=== PATIENT | female | born 1960 | race Caucasian/White ===

== ENCOUNTER → 2019-11-02 15:35 | Outpatient (CLI) | payer BC, MEDICAID, SELFPAY ==
--- NOTE | 2019-11-02 | LES_PTH ---
PATIENT: HONORIO TOVAR LOC: [facility] U#:[id number] AGE/SX: 64/F ROOM: RE11/02/[address]: Dr. Thiago Rod MD : 1960 BED: DIS: SPEC #: [id number] RECD: 11/02/19 15:18 STATUS: RAGHAVENDRA MENDEZ #: [id number] PASTORA: 11/02/19 00:[address]: Thiago Rod DEPT: SURGICAL PATHOLOGY RECD BY: Daniel Hickman ENTERED: 11/03/19 14:06 SP TYPE: Lesion OTHR DR: Dr. Ulises Steinberg DO Tissues: Skin of eyelid, NOS Procedures: Surgery Specimen Level IV HEADER OPERATION: Right lower eyelid lesion biopsy PRE-OP DIAGNOSIS: Increased size of cystic lesions with vascularity TISSUE SUBMITTED: RLL MICROSCOPIC DIAGNOSIS Right lower eyelid lesion, biopsy: Consistent with eccrine hidrocystoma. AM:andrez 11/04/19 MICROSCOPIC DESCRIPTION Slides are reviewed. GROSS DESCRIPTION Received is one container labeled with the patient's name and not further designated. The specimen consists of a piece of harden soft tissue measuring 0.5 x 0.3 x 0.2 cm. The entire specimen is submitted in one cassette. / SJ:andrez 11/03/19 TC:1 CPT: 81316
== END ==
LOC: LABSPEC 15:41
PROVIDERS: PCP Preventive Medicine Occupational Medicine; Referring Provider Ophthalmology; Visit Provider Ophthalmology
DX: H02.9 Unspecified disorder of eyelid (principal)
CPT/HCPCS: 88305

== ENCOUNTER 2021-08-15 09:40 | Outpatient (CLI) | payer BC, SELFPAY ==
--- NOTE | 2021-08-15 09:48 | ADU_ITS ---
Reason For Study: Stricture of artery Right Velocities Left Velocities Ext. Iliac Artery, dist = 103.4 cm./sec. Ext Iliac Artery, dist = 166.9 cm./sec. Common Femoral Artery, mid = 65 cm./sec. Common Femoral Artery, mid = 150.7 cm./sec. Supf Femoral Artery, prox = 188 cm./sec. Supf. Femoral Artery, prox = 79.6 cm./sec. SFA mid, No flow noted. SFA mid, prox to occlusion, 130.7 cm/sec. Supf Femoral Artery, dist. = 51.1 cm./sec. SFA mid/distal, No flow noted. Profunda Femoral Artery = 96 cm./sec. SFA distal, distal to occlusion, 42.4 cm/sec. Popliteal Artery, mid = 36.4 cm./sec. Profunda Femoral Artery = 110.3 cm./sec. Post. Tibial Artery, prox = 42.4 cm./sec. Popliteal Artery, mid = 33.2 cm./sec. Post. Tibial Artery, mid = 43.5 cm./sec. Post. Tibial Artery, prox = 27.5 cm./sec. Post. Tibial Artery, dist = 43.5 cm./sec. Post Tibial Artery, mid = 46 cm./sec. Peroneal Artery, prox = 24.9 cm./sec. Post Tibial Artery, dist. = 26 cm./sec. Peroneal Artery, mid = 23.2 cm./sec. Peroneal Artery, prox = 21.1 cm./sec. Peroneal Artery,dist = 20.6 cm./sec. Peroneal Artery, mid = 18.2 cm./sec. Ant. Tibial Artery, prox = 35.4 cm./sec. Peroneal Artery,dist. = 8.9 cm./sec. Ant. Tibial Artery, mid = 24.9 cm./sec. Ant.Tibial Artery, prox = 23.1 cm./sec. Ant. Tibial Artery, dist = 21.1 cm./sec. Ant Tibial Artery, mid = 16.4 cm./sec. Ant. Tibial Artery, distal = 16 cm./sec. Procedure Exam performed in department. /US Art Duplex Bilat Lower Ext Interpretation Summary Bilateral mid femoral artery with occlusions. Ordering Physician: Adrian Coats Referring Physician: Ulises Steinberg Performed By: Soni Hawthorne RVT
--- NOTE | 2021-08-15 09:48 | AAVD_ITS ---
Reason For Study: Stricture of artery Aorta Measurements Aorta Doppler Measurements Proximal aorta measures1.49 x 1.49cm. in cross- Peak systolic flow velocities within the proximal sectional axis. aorta measure 68.3 cm/sec. Proximal aorta measures1.49cm. in longitudinal Peak systolic flow velocities within the mid aorta axis. measure 107 cm/sec. Mid aorta measures1.56 x 1.58cm. in cross- Peak systolic flow velocities within the distal sectional axis. aorta measure 86.9 cm/sec. Mid aorta measures1.56cm. in longitudinal axis. Distal aorta measures1.28 x 1.30cm. in cross- sectional axis. Distal aorta measures1.31cm. in longitudinal axis. Left Iliac Artery Left iliac artery measures 0.99 x 0.99 cm. in the cross-sectional axis. Left iliac artery measures 0.98 cm. in the longitudinal axis. Peak systolic velocity in the left iliac artery measures 103.4 cm/sec. Right Iliac Artery Right iliac artery measures 1.14 x 1.16 cm. in the cross-sectional axis. Right iliac artery measures 1.11 cm. in the longitudinal axis. Peak systolic velocity in the right iliac artery measures 86.9 cm/sec. Procedure Aorta IVC Iliac vasculature or bypass grafts [id number]. Exam performed in department. VL/Abd Aortic/IVC Duplex scan Interpretation Summary No evidence of aortic iliac aneurysm or stenosis. Ordering Physician: Adrian Coats Referring Physician: Ulises Steinberg Performed By: Soni Hawthorne RVT
--- NOTE | 2021-08-15 09:48 | ART_ITS ---
Reason For Study: Atherosclerosis Procedure A bilateral lower extremity continuous wave Doppler with analog waveform analysis and ankle brachial indexes. Left Segmental Pressures Left brachial= 115mmHg. Left posterior tibial artery = 72mmHg. Left dorsalis pedis artery = 68mmHg. Left digit = 42 mmHg. The left dorsalis pedis waveforms are biphasic. The left posterior tibial artery waveforms are biphasic. Right Segmental Pressures Right brachial= 119mmHg. Right posterior tibial artery = 75mmHg. Right dorsalis pedis artery = 70mmHg. Right digit = 45 mmHg. The right dorsalis pedis waveforms are biphasic. The right posterior tibial artery waveforms are biphasic. Indices The right ankle brachial index by the dorsalis pedis is 0.59. The right ankle brachial index by the posterior tibial artery is 0.63. The right digital-brachial index is 0.38. The left ankle brachial index by the dorsalis pedis is 0.57. The left ankle brachial index by the posterior tibial artery is 0.61. The left digital-brachial index is 0.35. VL/Ankle Brachial Index Interpretation Summary Bilateral moderate occlusive disease at rest with biphasic flow and an IRENE 0.63 on the right and 0.61 on the left. Ordering Physician: Adrian Coats Referring Physician: Ulises Steinberg Performed By: Soni Hawthorne RVT
== END 2021-08-15 23:59 | disposition home or self-care (01) ==
LOC: CVS 09:46
PROVIDERS: PCP Preventive Medicine Occupational Medicine; Referring Provider Surgery Vascular Surgery; Visit Provider Surgery Vascular Surgery
DX: I70.213 Atherosclerosis of native arteries of extremities with intermittent claudication, bilateral legs (principal); I77.1 Stricture of artery; I70.0 Atherosclerosis of aorta; I10 Essential (primary) hypertension
CPT/HCPCS: 93922; 93925; 93978

== ENCOUNTER → 2022-06-01 | Outpatient (CLI) | payer MEDICARE, MEDICAID, SELFPAY ==
--- NOTE | 2022-06-01 09:05 | CDU_ITS ---
Reason For Study: Stenosis Rt. Velocities/BP Lt. Velocities/BP Prox CCA 82.8/28.9 cm/sec. Prox CCA 163.1/51.1 cm/sec. Mid CCA 132.1/42.6 cm/sec. Mid CCA 121.4/35.8 cm/sec. Dist CCA 108.3/31.6 cm/sec. Dist CCA 103.8/31.4 cm/sec. Prox ICA 113.8/27.9 cm/sec. Prox ICA 121.1/37.1 cm/sec. Mid ICA 90/29.8 cm/sec. Mid ICA 104.7/40.7 cm/sec. Dist ICA 60.8/23.4 cm/sec. Dist ICA 88.8/29.8 cm/sec. Rt. ICA/CCA = 1.05. Lt. ICA/CCA = 1.00. Prox ECA 104.7/20.6 cm/sec. Prox ECA 136.8/35.8 cm/sec. Rt. Vert. 31.5/8 cm/sec. Lt. Vert. 49.5/13.9 cm/sec. Right Extracranial There is intimal thickening but no significant atherosclerotic plaque noted in the right common carotid artery. There is homogeneous, smooth atherosclerotic plaque noted in the right internal carotid artery. There is intimal thickening but no significant atherosclerotic plaque noted in the right external carotid artery. Antegrade flow is noted in the right vertebral artery. Left Extracranial There is intimal thickening but no significant atherosclerotic plaque noted in the left common carotid artery. There is intimal thickening but no significant atherosclerotic plaque noted in the left internal carotid artery. There is intimal thickening but no significant atherosclerotic plaque noted in the left external carotid artery. Antegrade flow is noted in the left vertebral artery. Procedure Carotid Duplex [id number]. This is a Carotid Duplex examination using B-mode, color flow and specral Doppler. Exam performed in department. VL/Carotid Duplex Ultrasound Interpretation Summary Mild (<50%) stenosis right extracranial internal carotid. Mild (<50%) stenosis left extracranial internal carotid. Flow within the vertebral arteries is antegrade bilaterally. Ordering Physician: Adrian Coats Referring Physician: Ulises Shah Performed By: Soni Hawthorne RVT
--- NOTE | 2022-06-01 09:05 | ADU_ITS ---
Reason For Study: Atherosclerosis Right Velocities Left Velocities Ext. Iliac Artery, dist = 104.5 cm./sec. Ext Iliac Artery, dist = 104.1 cm./sec. Common Femoral Artery, mid = 111.1 cm./sec. Common Femoral Artery, mid = 161.6 cm./sec. Supf Femoral Artery, prox = 62.2 cm./sec. Supf. Femoral Artery, prox = 77.8 cm./sec. SFA mid, No flow. SFA mid, prox to occlusion, 58.4 cm/sec. SFA mid/distal, distal to occlusion, 42.4 cm/sec. SFA mid/distal, No flow noted. Supf Femoral Artery, dist. = 43.3 cm./sec. SFA distal, distal to occlusion, 38.4 cm/sec. Profunda Femoral Artery = 83.3 cm./sec. Profunda Femoral Artery = 79.6 cm./sec. Popliteal Artery, mid = 31.1 cm./sec. Popliteal Artery, mid = 29.6 cm./sec. Post. Tibial Artery, prox = 26.7 cm./sec. Post. Tibial Artery, prox = 23.9 cm./sec. Post. Tibial Artery, mid = 31.1 cm./sec. Post Tibial Artery, mid = 30.3 cm./sec. Post. Tibial Artery, dist = 28.4 cm./sec. Post Tibial Artery, dist. = 39.6 cm./sec. Peroneal Artery, prox = 16.4 cm./sec. Peroneal Artery, prox = 13.9 cm./sec. Peroneal Artery, mid = 16.8 cm./sec. Peroneal Artery, mid = 14.7 cm./sec. Peroneal Artery,dist = 8.1 cm./sec. Peroneal Artery,dist. = 7.7 cm./sec. Ant. Tibial Artery, prox = 22.7 cm./sec. Ant.Tibial Artery, prox = 17.2 cm./sec. Ant. Tibial Artery, mid = 20.7 cm./sec. Ant Tibial Artery, mid = 21.3 cm./sec. Ant. Tibial Artery, dist = 19.1 cm./sec. Ant. Tibial Artery, distal = 19.7 cm./sec. Procedure Exam performed in department. /US Art Duplex Bilat Lower Ext Interpretation Summary Bilateral femoral artery occlusion. Ordering Physician: Adrian Coats Referring Physician: Ulises Steinberg Performed By: Soni Hawthorne RVT
--- NOTE | 2022-06-01 09:06 | ART_ITS ---
Reason For Study: Atherosclerosis Procedure A bilateral lower extremity continuous wave Doppler with analog waveform analysis and ankle brachial indexes. Left Segmental Pressures Left brachial= 96mmHg. Left posterior tibial artery = 58mmHg. Left dorsalis pedis artery = 57mmHg. The left dorsalis pedis waveforms are biphasic. The left posterior tibial artery waveforms are biphasic. Right Segmental Pressures Right posterior tibial artery = 66mmHg. Right dorsalis pedis artery = 67mmHg. The right dorsalis pedis waveforms are biphasic. The right posterior tibial artery waveforms are biphasic. Indices The right ankle brachial index by the dorsalis pedis is 0.70. The right ankle brachial index by the posterior tibial artery is 0.69. The left ankle brachial index by the dorsalis pedis is 0.59. The left ankle brachial index by the posterior tibial artery is 0.60. VL/Ankle Brachial Index Interpretation Summary Bilateral biphasic flow with IRENE 0.7 on the right and 0.6 on the left. Ordering Physician: Adrian Coats Referring Physician: Ulises Steinberg Performed By: Soni Hawthorne RVT
== END | disposition home or self-care (01) ==
PROVIDERS: PCP Preventive Medicine Occupational Medicine; Referring Provider Surgery Vascular Surgery; Visit Provider Surgery Vascular Surgery
DX: I65.23 Occlusion and stenosis of bilateral carotid arteries (principal); I70.213 Atherosclerosis of native arteries of extremities with intermittent claudication, bilateral legs; I77.1 Stricture of artery; F17.210 Nicotine dependence, cigarettes, uncomplicated
CPT/HCPCS: 93880; 93922; 93925

== ENCOUNTER → 2023-06-10 | Outpatient (CLI) | payer MEDICARE, MEDICAID, SELFPAY ==
--- NOTE | 2023-06-10 12:26 | ADU_ITS ---
Reason For Study: Atherosclerosis Right Velocities Left Velocities Ext. Iliac Artery, dist = 84 cm./sec. Ext Iliac Artery, dist = 118 cm./sec. Common Femoral Artery, mid = 133 cm./sec. Common Femoral Artery, mid = 151 cm./sec. Supf Femoral Artery, prox = 54 cm./sec. Supf. Femoral Artery, prox = 118 cm./sec. Supf Femoral Artery, mid = 0 cm./sec. Lt SFA prox/mid Stent: Supf Femoral Artery, dist. = 78 cm./sec. Pre Stent: 118 cm/s No flow noted Rt SFA mid, flow reconstitutes at Prox Stent: 96 cm/s distal SFA. Stent Pre stenosis: 113 cm/s Profunda Femoral Artery = 64 cm./sec. Stent Stenosis: 356 cm/s Popliteal Artery, mid = 28 cm./sec. Stent Post Stenosis: 206 cm/s Post. Tibial Artery, prox = 37 cm./sec. Mid Stent: 72 cm/s Post. Tibial Artery, mid = 34 cm./sec. Distal Stent: 56 cm/s Post. Tibial Artery, dist = 37 cm./sec. Post Stent: 110 cm/s Peroneal Artery, prox = 15 cm./sec. Lt SFA distal Stenosis: Peroneal Artery, mid = 13 cm./sec. Pre Stenosis: 89 cm/s Peroneal Artery,dist = 14 cm./sec. Stenosis: 270 cm/s Ant. Tibial Artery, prox = 31 cm./sec. Post Stenosis: 124 cm/s. Ant. Tibial Artery, mid = 20 cm./sec. Supf. Femoral Artery, mid = 110 cm./sec. Ant. Tibial Artery, dist = 18 cm./sec. Supf. Femoral Artery, dist = 270 cm./sec. Profunda Femoral Artery = 82 cm./sec. Popliteal Artery, mid = 44 cm./sec. Post. Tibial Artery, prox = 45 cm./sec. Post Tibial Artery, mid = 45 cm./sec. Post Tibial Artery, dist. = 35 cm./sec. Peroneal Artery, prox = 43 cm./sec. Peroneal Artery, mid = 40 cm./sec. Peroneal Artery,dist. = 19 cm./sec. Ant.Tibial Artery, prox = 38 cm./sec. Ant Tibial Artery, mid = 45 cm./sec. Ant. Tibial Artery, distal = 46 cm./sec. Procedure Exam performed in department. VL/US Art Duplex Bilat Lower Ext Interpretation Summary Right femoral occluded. Left femoral stent severe stenosis. Ordering Physician: Adrian Coats Referring Physician: Ulises Steinberg Performed By: Nany Ruiz, KARTHIK, RVT
--- NOTE | 2023-06-10 12:26 | ART_ITS ---
Reason For Study: Atherosclerosis Procedure A bilateral lower extremity continuous wave Doppler with analog waveform analysis and ankle brachial indexes. Left Segmental Pressures Left brachial= 107mmHg. Left posterior tibial artery = 67mmHg. Left dorsalis pedis artery = 88mmHg. Left digit = 55 mmHg. Right Segmental Pressures Right posterior tibial artery = 72mmHg. Right dorsalis pedis artery = 70mmHg. Right digit = 36 mmHg. Indices The right ankle brachial index by the posterior tibial artery is 0.67. The right ankle brachial index by the dorsalis pedis is 0.65. The right digital-brachial index is 0.34. The left ankle brachial index by the posterior tibial artery is 0.63. The left ankle brachial index by the dorsalis pedis is 0.82. The left digital-brachial index is 0.51. VL/Ankle Brachial Index Interpretation Summary The right resting ankle-brachial index appears moderately abnormal. The left re sting ankle-brachial index appears mildly abnormal. Ordering Physician: Adrian Coats Referring Physician: Ulises Steinebrg Performed By: Nany Ruiz RDCS/RVT
--- OUTSIDE RECORDS SUMMARY | 2023-06-10 12:52 | XMS RPT_ITS | CCD ---
Author Name Unknown Address [address] [place] [address] Organization [facility] Care Team Providers Care Saddle Maker Name Role Phone DerianBrenton bear Attending Unavailable PROVIDER, UNKNOWN Referring Unavailable Annabel Steinberg Primary Care Unavaila Annabel Harrington DO Primary Care Provider ANNABEL STEINBERG DO Primary Care Physician [phone] ANNABEL STEINBERG DO Primary Care Physician [phone] CONNIE REYNAGA, DR BYERS Attending UnavailANNABEL Nickerson DO Primary Care Unavailable DR ZEESHAN ROSALES MD Attending UnavailANNABEL Nickerson DO Primary Care Unavailable CODY REYNAGA, DR MORALES Attending Unavailab ANNABEL Grubbs DO Primary Care Unavailable VANESSA FONSECA MD Attending Unavailable ANNABEL STEINBERG DO Primary Care Unavailable NATHALIA BROOKS DO Attending Unavailable ANNABEL STEINBERG DO Primary Care Unavailable ANNABLE STEINBERG DO Attending Unavailable ANNABEL STEINBERG DO Primary Care Unavailable ANNABEL STEINBERG DO Attending Unavailable ANNABEL STEINBERG DO Primary Care Unavailable Allergies Allergy Classification Reported Allergen(s) Allergy Type Date of Onset Reaction(s) Facility (8 sources) NSAIDs; Translations: [NSAIDs] Drug intolerance Nausea [facility] (8 sources) Simvastatin; Translations: [simvastatin] Drug Allergy Nausea [facility] (7 sources) dulaglutide; Translations: [dulaglutide] Drug Allergy Abdominal pain (finding), Headache (finding), Nausea (finding) [facility] (7 sources) Ozempic; Translations: [semaglutide] Drug allergy Nausea (finding), Abdominal pain (finding) [facility] Phys[facility] Cammal Medications Current Medications Medication Drug Class(es) Dates Sig (Normalized) Sig (Original) acetaminophen 325 mg / oxyCODONE hydrochloride 5 mg oral tablet (1 source) Opioid Agonist take 1 tablet by mouth every six hours as needed for pain oxyCODONE-acetamin ophen (PERCOCET) 5-325 MG per tablet Take 1 tablet by mouth every 6 hours as needed for Pain.. 0 Active albuterol MDI (90 mcg/inh) CFC free inhalation aerosol (8 sources) Start: 10-12-2022 take 2 puff(s) by inhalation every four hours as needed for wheezing albuterol MDI (90 mcg/inh) CFC free inhalation aerosol 2 puff(s), Inhalation, q4h, PRN as needed for wheezing, # 18 gram(s), 2 Refill(s), Pharmacy: [facility], Viral upper respiratory infection, 168.5, cm, 07/26/22 10:48:00 EDT, Height, kg, 07/26/22 10:48:00 EDT, Dosing Weight Start Date: 10/12/22 Status: Ordered Completed/Discontinued Medications Medication Drug Class(es) Dates Sig (Normalized) Sig (Original) 0.5 ml dulaglutide 1.5 mg/ml auto-injector (1 source) GLP-1 Receptor Agonist Start: 02-28-2021 inject 0.5 mL by subcutaneous injection every week Trulicity Pen 0.75 mg/0.5 mL subcutaneous solution Dose : 0.75 mg = 0.5 mL, Subcutaneous, qWeek, # 2.5 mL, 5 Refill(s), 0.5 mL/Pen, Pharmacy: [facility]/pharmacy #[id number], Diabetes mellitus type 2, 170.2, cm, 02/28/21 17:00:00 EDT, Height, kg, 02/28/21 17:00:00 EDT, Dosing Weight Start Date: 02/28/21 Status: Ordered gadobutrol (GADAVIST) injection 11 mL (1 source) Start: 10-10-2020 End: 10-10-2020 gadobutrol (GADAVIST) injection 11 mL Problems Active Problems Problem Classification Problem Date Documented Da te Episodic/Chronic Acute and unspecified renal failure (1 source) Acute renal failure syndrome; Translations: [Acute kidney failure, unspecified] Onset: 2 Episodic Allergic reactions (8 sources) Eczema 08-02-2020 Episodic Anxiety disorders (13 sources) Mixed anxiety and depressive disorder; Translations: [Anxiety disorder] Onset: 2 05-29-2019 Chronic Coagulation and hemorrhagic disorders (8 sources) Blood coagulation disorder 07-10-2013 Chronic Congestive heart failure; nonhypertensive (9 sources) Heart failure; Translations: [Heart failure, unspecified] Onset: 2 08-02-2020 Chronic Diabetes mellitus with complications (8 sources) Polyneuropathy due to type 2 diabetes mellitus 11-27-2019 Chronic Diabetes mellitus with complications (2 sources) Type 2 diabetes mellitus with diabetic peripheral angiopathy with gangrene; Translations: [Type 2 diabetes w diabetic peripheral angiopathy w gangrene] Onset: 9 Diabetes mellitus without complication (9 sources) Type 2 diabetes mellitus; Translations: [Type 2 diabetes mellitus without complication] Onset: 2 11-27-2019 Chronic Disorders of lipid metabolism (9 sources) Mixed hyperlipidemia; Translations: [Mixed hyperlipidemia] Onset: 2 08-02-2020 Chronic Esophageal disorders (9 sources) Gastroesophageal reflux disease; Translations: [Gastroesophageal reflux disease without esophagitis] Onset: 2 06-19-2017 Chronic Essential hypertension (11 sources) Essential (primary) hypertension; Translations: [Hypertensive disorder] Onset: 9 11-27-2019 Chronic Fluid and electrolyte disorders (1 source) Dehydration; Translations: [Dehydration] Onset: 3 Episodic Gangrene (2 sources) Gangrene, not elsewhere classified; Translations: [Gangrene, not elsewhere classified] Onset: 9 Episodic Genitourinary symptoms and ill-defined conditions (8 sources) Urgent desire to urinate 11-27-2019 Episodic Mood disorders (2 sources) Major depressive disorder, single episode, unspecified; Translations: [Major depressive disorder, single episode, unspecified] Onset: 9 Nausea and vomiting (1 source) Nausea; Translations: [Nausea] Onset: 2 Episodic Osteoarthritis (8 sources) Osteoarthritis of right knee joint 05-29-2019 Chronic Other aftercare (2 sources) extermination inspector (current) use of anticoagulants; Translations: [snf (current) use of anticoagulants] Onset: 9 Episodic Other aftercare (2 sources) extermination inspector (current) use of insulin; Translations: [extermination inspector (current) use of insulin] Onset: 9 Episodic Other connective tissue disease (9 sources) Fibromyalgia; Translations: [Fibromyalgia] Onset: 2 11-25-2018 Episodic Other connective tissue disease (8 sources) Pain in toe 01-03-2021 Episodic Other connective tissue disease (4 sources) Muscle weakness 05-10-2022 Episodic Other connective tissue disease (4 sources) Recurrent falls 05-10-2022 Episodic Other ear and sense organ disorders (8 sources) Hearing loss of left ear 02-18-2020 Chronic Other ear and sense organ disorders (1 source) Sudden idiopathic hearing loss; Translations: [Sudden idiopathic hearing loss, left ear] Episodic Other gastrointestinal disorders (1 source) Irritable bowel syndrome; Translations: [Irritable bowel syndrome without diarrhea] Onset: 2 Chronic Other gastrointestinal disorders (1 source) Diarrhea; Translations: [Diarrhea, unspecified] Onset: 2 Episodic Other nervous system disorders (3 sources) Neuropathy 06-19-2017 Chronic Past or Other Problems Problem Classification Problem Date Documented Da te Episodic/Chronic Other screening for suspected conditions (not mental disorders or infectious disease) (2 sources) Encounter for screening for malignant neoplasm of colon; Translations: [Encounter for screening for malignant neoplasm of colon] Onset: 12-03-2022 Episodic Results Test Name Value Interpretation Reference Range Facil ity Vital Signs Date Time Vital Sign Value Performing Clinician Faci lity 12-03-2022 10:17-0400 Diastolic Blood Pressure Non-Invasive [address] ZEESHAN ROSALES MD [facility] 12-03-2022 10:17-0400 Heart rate 71 /min DR ZEESHAN ROSALES MD [facility] 12-03-2022 10:17-0400 Respiratory rate 16 /min DR ZEESHAN ROSALES MD [facility] 12-03-2022 10:17-0400 Systolic Blood Pressure Non-Invasive [address] ZEESHAN ROSALES MD [facility] 12-03-2022 09:54-0400 Diastolic Blood Pressure Non-Invasive [address] ZEESHAN ROSALES MD [facility] 12-03-2022 09:54-0400 Systolic Blood Pressure Non-Invasive [address] ZEESHAN ROSALES MD [facility] 12-03-2022 09:44-0400 Diastolic Blood Pressure Non-Invasive [address] ZEESHAN ROSALES MD [facility] 12-03-2022 09:44-0400 Heart rate 73 /min DR ZEESHAN ROSALES MD [facility] 12-03-2022 09:44-0400 Respiratory rate 18 /min DR ZEESHAN ROSALES MD [facility] 12-03-2022 09:44-0400 Systolic Blood Pressure Non-Invasive [address] ZEESHAN ROSALES MD [facility] 12-03-2022 09:38-0400 Body temperature 97.7 [degF] DR ZEESHAN ROSALES MD [facility] 12-03-2022 09:38-0400 Heart rate 70 /min DR ZEESHAN ROSALES MD [facility] 12-03-2022 09:38-0400 Respiratory rate 20 /min DR ZEESHAN ROSALES MD [facility] 12-03-2022 09:35-0400 Heart rate 74 /min DR ZEESHAN ROSALES MD [facility] 12-03-2022 09:35-0400 Respiratory Rate - Anes 28 br/min DR ZEESHAN ROSALES MD [facility] 12-03-2022 09:30-0400 Respiratory Rate - Anes 28 br/min DR ZEESHAN ROSALES MD [facility] 12-03-2022 09:25-0400 Respiratory Rate - Anes 36 br/min DR ZEESHAN ROSALES MD [facility] 12-03-2022 08:11-0400 Body height [address] ZEESHAN ROSALES MD [facility] 12-03-2022 08:11-0400 Body temperature 97.7 [degF] DR ZEESHAN ROSALES MD [facility] 12-03-2022 08:11-0400 Body weight [address] ZEESHAN ROSALES MD [facility] 07-10-2022 18:56-0500 Diastolic Blood Pressure Non-Invasive [address] CARMEN ROSS MD [facility] 07-10-2022 18:56-0500 Heart rate 96 /min DR CARMEN Mckenzie [facility] 07-10-2022 18:56-0500 Reason For Taking VItal Signs DR CARMEN ROSS MD [facility] 07-10-2022 18:56-0500 Respiratory rate 18 /min DR CARMEN Mckenzie [facility] 07-10-2022 18:56-0500 Systolic Blood Pressure Non-Invasive [address] CARMEN ROSS MD [facility] 07-10-2022 17:20-0500 Diastolic Blood Pressure Non-Invasive [address] CARMEN ROSS MD [facility] 07-10-2022 17:20-0500 Heart rate 102 /min DR CARMEN Mckenzie [facility] 07-10-2022 17:20-0500 Respiratory rate 18 /min DR CARMEN Mckenzie [facility] 07-10-2022 17:20-0500 Systolic Blood Pressure Non-Invasive [address] CARMEN ROSS MD [facility] 07-10-2022 16:02-0500 Body temperature 99.32 [degF] DR CARMEN Mckenzie [facility] 07-10-2022 16:02-0500 Diastolic Blood Pressure Non-Invasive [address] CARMEN ROSS MD [facility] 07-10-2022 16:02-0500 Heart rate 106 /min DR CARMEN Mckenzie [facility] 07-10-2022 16:02-0500 Respiratory rate 20 /min DR CARMEN Mckenzie [facility] 07-10-2022 16:02-0500 Systolic Blood Pressure Non-Invasive [address] CARMEN ROSS MD [facility] 07-05-2022 11:21-0500 Diastolic Blood Pressure Non-Invasive 66 [address] [facility] 07-05-2022 11:21-0500 Heart rate 74 /min VANESSA FONSECA MD [facility] 07-05-2022 11:21-0500 Systolic Blood Pressure Non-Invasive 101 [address] [facility] 07-05-2022 11:01-0500 Diastolic Blood Pressure Non-Invasive 67 [address] [facility] 07-05-2022 11:01-0500 Heart rate 75 /min VANESSA FONSECA MD [facility] 07-05-2022 11:01-0500 Respiratory rate 18 /min VANESSA FONSECA MD [facility] 07-05-2022 11:01-0500 Systolic Blood Pressure Non-Invasive 98 [address] [facility] 07-05-2022 10:44-0500 Diastolic Blood Pressure Non-Invasive 66 [address] [facility] 07-05-2022 10:44-0500 Heart rate 72 /min VANESSA FONSECA MD [facility] 07-05-2022 10:44-0500 Systolic Blood Pressure Non-Invasive 98 [address] [facility] 07-05-2022 10:31-0500 Respiratory rate 18 /min VANESSA FONSECA MD [facility] 07-05-2022 10:15-0500 Respiratory rate 18 /min VANESSA FONSECA MD [facility] 07-05-2022 06:05-0500 Blood Pressure Cuff Size VANESSA FONSECA MD [facility] 07-05-2022 06:05-0500 Blood Pressure Location VANESSA FONSECA MD [facility] 07-05-2022 06:05-0500 Blood Pressure Method VANESSA FONSECA MD [facility] 07-05-2022 06:05-0500 Body height 170 cm VANESSA FONSECA MD [facility] 07-05-2022 06:05-0500 Body temperature 97.7 [degF] VANESSA FONSECA MD [facility] 07-05-2022 06:05-0500 Body weight 106.1 kg VANESSA FONSECA MD [facility] 07-05-2022 06:05-0500 Body weight 36.71 kg/m2 VANESSA FONSECA MD [facility] 07-05-2022 06:05-0500 Heart rate 87 /min VANESSA FONSECA MD [facility] 05-07-2022 15:02-0500 Diastolic Blood Pressure Non-Invasive 84 1 NATHALIA BROOKS DO [facility] 05-07-2022 15:02-0500 Heart rate 88 /min NATHALIA BROOKS DO [facility] 05-07-2022 15:02-0500 Respiratory rate 20 /min NATHALIA BROOKS DO [facility] 05-07-2022 15:02-0500 Systolic Blood Pressure Non-Invasive 130 1 NATHALIA BROOKS DO [facility] 05-07-2022 10:56-0500 Body temperature 97.7 [degF] NATHALIA BROOKS DO [facility] 05-07-2022 10:56-0500 Diastolic Blood Pressure Non-Invasive 69 1 NATHALIA BROOKS DO [facility] 05-07-2022 10:56-0500 Heart rate 104 /min NATHALIA BROOKS DO [facility] 05-07-2022 10:56-0500 Respiratory rate 20 /min NATHALIA BROOKS DO [facility] 05-07-2022 10:56-0500 Systolic Blood Pressure Non-Invasive 109 1 NATHALIA BROOKS DO [facility] 12-06-2021 15:25-0400 Body temperature 97.88 [degF] [facility] SECURITY INCIDENT RESPONSE SPECIALIST-ROOF [employer]TING [employer] [facility] 12-06-2021 15:25-0400 Diastolic blood pressure 65 mm[Hg] [facility] RESPONSE SPECIALIST-[employer]OOF [employer] [facility] 12-06-2021 15:25-0400 Heart rate 82 /min [facility] RESPONSE SPECIALIST-ROOF [employer] [facility] 12-06-2021 15:25-0400 Respiratory rate 18 /min [facility] SECURITY INCIDENT RESPONSE SPECIALIST-ROOF [employer] [facility] 12-06-2021 15:25-0400 Systolic blood pressure 119 mm[Hg] [facility] RESPONSE SPECIALIST-ROOF [employer]TING [employer]ER [facility] 12-06-2021 12:28-0400 Body temperature 98.24 [degF] [facility] SECURITY INCIDENT RESPONSE SPECIALIST-ROOF [employer]TING [employer]ER [facility] 12-06-2021 12:28-0400 Diastolic blood pressure 71 mm[Hg] [facility] SECURITY INCIDENT RESPONSE SPECIALIST-ROOF [employer] [facility] 12-06-2021 12:28-0400 Heart rate 77 /min [facility] SECURITY INCIDENT RESPONSE SPECIALIST-ROOF [employer] [facility] 12-06-2021 12:28-0400 Respiratory rate 18 /min [facility] RESPONSE SPECIALIST-ROOF [employer] [facility] 12-06-2021 12:28-0400 Systolic blood pressure 113 mm[Hg] [facility] RESPONSE SPECIALIST-ROOF [employer] [facility] 12-06-2021 07:14-0400 Body temperature 98.06 [degF] [facility] RESPONSE SPECIALIST-ROOF [employer] [facility] 12-06-2021 07:14-0400 Diastolic blood pressure 67 mm[Hg] [facility] RESPONSE SPECIALIST-ROOF [employer] [facility] 12-06-2021 07:14-0400 Heart rate 74 /min [facility] RESPONSE SPECIALIST-ROOF [employer] [facility] 12-06-2021 07:14-0400 Respiratory rate 18 /min [facility] RESPONSE SPECIALIST-ROOF [employer] [facility] 12-06-2021 07:14-0400 Systolic blood pressure 106 mm[Hg] [facility] RESPONSE SPECIALIST-ROOF [employer] [facility] 12-06-2021 04:10-0400 Heart rate 72 /min [facility] RESPONSE SPECIALIST-ROOF [employer] [facility] 12-06-2021 04:10-0400 Mean blood pressure 65 mm[Hg] [facility] RESPONSE SPECIALIST-ROOF [employer] [facility] 12-06-2021 00:18-0400 Mean blood pressure 81 mm[Hg] [facility] RESPONSE SPECIALIST-ROOF [employer] [facility] 12-05-2021 20:14-0400 Body height 170 cm [facility] RESPONSE SPECIALIST-ROOF [employer] [facility] 12-05-2021 20:14-0400 Body weight 106 kg [facility] RESPONSE SPECIALIST-ROOF [employer] [facility] 12-05-2021 20:14-0400 Body weight 36.68 kg/m2 [facility] INCIDENT RESPONSE SPECIALIST-ROOF [employer] [facility] 12-05-2021 20:10-0400 Mean blood pressure 81 mm[Hg] [facility] INCIDENT RESPONSE SPECIALIST-ROOF [employer] [facility] 12-05-2021 16:01-0400 Body height 165.1 cm [facility] RESPONSE SPECIALIST-ROOF [employer] [facility] 12-05-2021 16:01-0400 Body weight 105 kg [facility] INCIDENT RESPONSE SPECIALIST-ROOF [employer] [facility] Encounters Encounter Date Encounter Type Care Provider Facility Start: 03-11-2023 ambulatory ANNABEL STEINBERG DO Facil ity:B Start: 12-03-2022 End: 12-03-[address] ZEESHAN ROSALES MD Facility:B Start: 12-03-2022 End: 12-03-[address] ZEESHAN ROSALES MD [facility] Start: 11-09-[address] ZEESHAN ROSALES MD Fa cility:B Start: 11-09-2022 End: 11-09-[address] ZEESHAN ROSALES MD [facility] Start: 08-27-2022 ambulatory ANNABEL STEINBERG DO Facil ity:B Start: 07-10-2022 End: 07-10-2022 Emergency department patient visit DR CARMEN ROSS MD Facility:B Start: 07-10-2022 End: 07-10-2022 Emergency department patient visit DR CARMEN ROSS MD [facility] Start: 07-05-2022 End: 07-05-2022 ambulatory VANESSA FONSECA MD Facility:A Start: 07-05-2022 End: 07-05-2022 SAME DAY STAY VANESSA FONSECA MD [facility] Start: 05-07-2022 End: 05-07-2022 Emergency department patient visit NATHALIA BROOKS DO Facility:B Start: 05-07-2022 End: 05-07-2022 Emergency department patient visit NATHALIA BROOKS DO [facility] Start: 12-29-2021 End: 12-29-2021 Patient encounter procedure ANNABEL STEINBERG DO [facility] Start: 12-05-2021 End: 12-06-2021 Evaluation and management of inpatient TREVIN [facility] SECURITY INCIDENT RESPONSE SPECIALIST-ROOF [employer] [facility] Start: 03-23-2021 End: 03-23-2021 Patient encounter procedure TERRI TREVIÑO DPM [facility] Start: 10-10-2020 End: 10-10-2020 Subsequent hospital visit by physician Gavino Guy DO Work Phone: [facility] MRI Procedures Date Procedure Procedure Detail Performing Clinician Start: 2018 Amputation of finger tip TERRI TREVIÑO DPM Plan of Treatment Date Care Activity Detail Author Start: 01-04-2021 Influenza vaccination Flu vacc ine (Season Ended) [facility] Work Phone: Start: 04-04-2018 DTaP/Tdap/Td vaccine (2 - Td or Tdap) DTaP/Tdap/Td vaccine (2 - Td or Tdap) [facility] Work Phone: Start: 2011 Screening for malign ant neoplasm of breast Breast cancer screen [facility] Work Phone: Start: 2011 Screening for malign ant neoplasm of colon Colon cancer screen colonoscopy [facility] Work Phone: Start: 2011 Shingles Vaccine (1 of 2) Shingles V accine (1 of 2) [facility] Work Phone: Start: 2001 Lipid panel Lipid screen [facility] Work Phone: Start: 1982 Screening for malign ant neoplasm of cervix Cervical cancer screen [facility] Work Phone: Start: 1976 HIV screening HIV screen [facility] Work Phone: Start: 1973 COVID-19 Vaccine (1) COVID-19 Vaccin e (1) [facility] Work Phone: Start: 1967 Pneumococcal 0-64 ye ars Vaccine (1 of 2 - PPSV23) Pneumococcal 0-64 years Vaccine (1 of 2 - PPSV23) [facility] Work Phone: Start: 1961 Creatinine measurement Creatinine mo nitoring [facility] Work Phone: Start: 1961 Hepatitis C screening Hepatitis C sc reen [facility] Work Phone: Start: 1961 Potassium monitoring Potassium monit oring [facility] Work Phone: End: 10-10-2020 MRI BRAIN W WO CONTRAST MRI BRAIN W WO CONTRAST Imaging Routine Once for 1 Occurrences starting 10/10/2020 until 10/10/2020 [facility] Work Phone: Immunizations Immunization Date Immunization Notes Care Provider Fa donato 10-19-2020 SARS-CoV-2 (COVID-19 ) mRNA-1273 vaccine TERRI TREVIÑO DPM [facility] 09-21-2020 SARS-CoV-2 (COVID-19 ) mRNA-1273 vaccine TERRI TREVIÑO DPM [facility] Payers Date Payer Category Payer Unknown [id number] [address] [facility] [id number] 2018-Present [phone] [address] [place] [address] [id number] 1961 Unknown [id number] 1961 Unknown [id number] 1961 Unknown [id number] 1961 Unknown [id number] 1961 Unknown [id number] 1961 Unknown [id number] 1961 Unknown [id number] 1961 Unknown [id number] Medicaid Social History Date Type Detail Facility Start: 06[facility]17-[facility] Work Phone: History of tobacco use Cigarette Smoker [facility] Start: 06-17-2018 Cigarettes smoked current (pack per day) - Reported [facility] Work Phone: Start: 06-17-2018 Tobacco use and exposure Never used [facility] Start: 06-17-2018 Alcohol intake 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 [facility] Sex Assigned At Female [facility] Medical Equipment Procedure Code Equipment Code Equipment Origin al Text Equipment Identifier Dates Blood Glucose Te st Strips Start: 03-01-2021 See Instructions , Dispense glucose test strips, #200, UAD BID to test blood sugar; Dx: E11.9, # 200 EA, 3 Refill(s), Pharmacy: [facility]/pharmacy #[id number], 170.2, cm, 02/28/21 17:00:00 EDT, Height, 114, kg, 02/28/21 17:00:00 EDT, Dosing Weight Start: 03-01-2021 See Instructions , Dispense glucose test strips, #200, UAD BID to test blood sugar; Dx: E11.9, # 200 EA, 3 Refill(s), Pharmacy: [facility]/pharmacy #[id number], 170.2, cm, 02/28/21 17:00:00 EDT, Height, 114, kg, 02/28/21 17:00:00 EDT, Dosing Weight Start: 03-01-2021 See Instructions , Dispense glucose test strips, #200, UAD BID to test blood sugar; Dx: E11.9, # 200 EA, 3 Refill(s), Pharmacy: [facility]/pharmacy #[id number], 170.2, cm, 02/28/21 17:00:00 EDT, Height, 114, kg, 02/28/21 17:00:00 EDT, Dosing Weight Start: 03-01-2021 See Instructions , Dispense glucose test strips, #200, UAD BID to test blood sugar; Dx: E11.9, # 200 EA, 3 Refill(s), Pharmacy: [facility]/pharmacy #[id number], 170.2, cm, 02/28/21 17:00:00 EDT, Height, 114, kg, 02/28/21 17:00:00 EDT, Dosing Weight Start: 03-01-2021 See Instructions , Dispense glucose test strips, #200, UAD BID to test blood sugar; Dx: E11.9, # 200 EA, 3 Refill(s), [id number] 170.2, cm, 02/28/21 17:00:00 EDT, Height, 114, kg, 02/28/21 17:00:00 EDT, Dosing Weight Start: 03-01-2021 See Instructions , Dispense glucose test strips, #200, UAD BID to test blood sugar; Dx: E11.9, # 200 EA, 3 Refill(s), Pharmacy: [facility]/pharmacy #[id number], 170.2, cm, 02/28/21 17:00:00 EDT, Height, 114, kg, 02/28/21 17:00:00 EDT, Dosing Weight Start: 03-01-2021 See Instructions , Dispense glucose test strips, #200, UAD BID to test blood sugar; Dx: E11.9, # 200 EA, 3 Refill(s), [id number], 170.2, cm, 02/28/21 17:00:00 EDT, Height, 114, kg, 02/28/21 17:00:00 EDT, Dosing Weight Start: 03-01-2021 Functional Status Date Assessment Result Facility 12-03-2022 Functional Status Ambulating in room [facility] (formerly [facility]3] 12-03-2022 Functional Status Ambulation in Room [facility] ([facility]3] 07-10-2022 Functional Status ID band on, Call device within reach, Bed in low position, Wheels locked, Upper/Half-Length side-rails up, Bedside Cart Locked, Visitor at bedside, Safety level maintained [facility] 07-05-2022 Functional Status Independent [facility] 07-05-2022 Functional Status [facility] 07-05-2022 Functional Status [facility] 07-05-2022 Functional Status Maintained [facility] 05-07-2022 Functional Status Independent [facility] 05-07-2022 Functional Status Standard Safet y ID band on, Call device within reach, Bed in low position, Wheels locked [facility] 12-06-2021 Functional Status Room check performed [facility] 12-06-2021 Functional Status [facility] 12-06-2021 Functional Status [facility] 12-06-2021 Functional Status Driving, 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, Home management, Housework, Laundry, Meal preparation, Personal ADL, Shopping [facility] 12-06-2021 Functional Status [facility] 12-06-2021 Functional Status Assistive Device Cane A [facility] 12-05-2021 Functional Status [facility] Mental Status Date Assessment Result Facility 12-03-2022 Mental Status Oriented x 4 [facility] 07-10-2022 Mental Status Oriented x 4 [facility] 07-10-2022 Mental Status [facility] 07-05-2022 Mental Status Orientation Oriented x 4 [facility] 07-05-2022 Mental Status [facility] 07-05-2022 Mental Status [facility] 07-05-2022 Mental Status Orientation Asse ssment Oriented x 4 [facility] 05-07-2022 Mental Status Orientation Oriented x 4 [facility] 05-07-2022 Mental Status [facility] 12-06-2021 Mental Status Oriented x 4 [facility] 12-06-2021 Mental Status [facility] 12-05-2021 Mental Status [facility] 12-05-2021 Mental Status [facility] Clinical Notes 12-05-2021 to 12-03-2022 Note Date & Type Note Facility 12-03-2022 Hospital Discharg e instructions Patient Education 12/03/2022 09:33:21 Nausea and Vomiting, Adult, Wtan-fc-Fefx Nausea and Vomiting, Adult Nausea is feeling sick to your stomach or feeling that you are about to throw up (vomit). Vomiting is when food in your stomach is thrown up and out of the mouth. Throwing up can make you feel weak. It can also make you lose too much water in your body (get dehydrated). If you lose too much water in your body, you may: Feel tired. Feel thirsty. Have a dry mouth. Have cracked lips. Go pee (urinate) less often. Older adults and people with other diseases or a weak body defense system (immune system) are at higher risk for losing too much water in the body. If you feel sick to your stomach and you throw up, it is important to follow instructions from your doctor about how to take care of yourself. Follow these instructions at home: Watch your symptoms for any changes. Tell your doctor about them. Follow these instructions to care for yourself at home. Eating and drinking Take an ORS (oral rehydration solution). This is a drink that is sold at pharmacies and stores. Drink clear fluids in small amounts as you are able, such as: ?Water. ?Ice chips. ?Fruit juice that has water added (diluted fruit juice). ?Low-calorie sports drinks. Eat bland, wiqt-jx-dpjzar foods in small amounts as you are able, such as: ?Bananas. ?Applesauce. ?Rice. ?Low-fat (lean) meats. ?[place]. ?Crackers. Avoid drinking fluids that have a lot of sugar or caffeine in them. This includes energy drinks, sports drinks, and soda. Avoid alcohol. Avoid spicy or fatty foods. General instructions Take hulf-eut-xkblngi and prescription medicines only as told by your doctor. Drink enough fluid to keep your pee (urine) pale yellow. Wash your hands often with soap and water. If you cannot use soap and water, use hand associate project manager. Make sure that all people in your home wash their hands well and often. Rest at home while you get better. Watch your condition for any changes. Take slow and deep breaths when you feel sick to your stomach. Keep all follow-up visits as told by your doctor. This is important. Contact a doctor if: Your symptoms get worse. You have new symptoms. You have a fever. You cannot drink fluids without throwing up. You feel sick to your stomach for more than 2 days. You feel light-headed or dizzy. You have a headache. You have muscle cramps. You have a rash. You have pain while peeing. Get help right away if: You have pain in your chest, neck, arm, or jaw. You feel very weak or you pass out (faint). You throw up again and again. You have throw up that is bright red or looks like black coffee grounds. You have bloody or black poop (stools) or poop that looks like tar. You have a very bad headache, a stiff neck, or both. You have very bad pain, cramping, or bloating in your belly (abdomen). You have trouble breathing. You are breathing very quickly. Your heart is beating very quickly. Your skin feels cold and clammy. You feel confused. You have signs of losing too much water in your body, such as: ?Dark pee, very little pee, or no pee. ?Cracked lips. ?Dry mouth. ?Sunken eyes. ?Sleepiness. ?Weakness. These symptoms may be an emergency. Do not wait to see if the symptoms will go away. Get medical help right away. Call your local emergency services (911 in the [place] Do not drive yourself to the hospital. Summary Nausea is feeling sick to your stomach or feeling that you are about to throw up (vomit). Vomiting is when food in your stomach is thrown up and out of the mouth. Follow instructions from your doctor about eating and drinking to keep from losing too much water in your body. Take ujsd-qqb-bpqvzyt and prescription medicines only as told by your doctor. Contact your doctor if your symptoms get worse or you have new symptoms. Keep all follow-up visits as told by your doctor. This is important. This information is not intended to replace advice given to you by your health care provider. Make sure you discuss any questions you have with your health care provider. Document Released: 10/08/2008 Document Revised: 08/14/2019 Document Reviewed: 09/30/2018 [employer] Patient Education 2020 esolidar. 12/03/2022 09:33:15 Moderate Conscious Sedation, Adult, Care After Moderate Conscious Sedation, Adult, Care After These instructions provide you with information about caring for yourself after your procedure. Your health care provider may also give you more specific instructions. Your treatment has been planned according to current medical practices, but problems sometimes occur. Call your health care provider if you have any problems or questions after your procedure. What can I expect after the procedure? After your procedure, it is common: To feel sleepy for several hours. To feel clumsy and have poor balance for several hours. To have poor judgment for several hours. To vomit if you eat too soon. Follow these instructions at home: For at least 24 hours after the procedure: Do not: ?Participate in activities where you could fall or become injured. ?Drive. ?Use heavy machinery. ?Drink alcohol. ?Take sleeping pills or medicines that cause drowsiness. ?Make important decisions or sign legal documents. ?Take care of children on your own. Rest. Eating and drinking Follow the diet recommended by your health care provider. If you vomit: ?Drink water, juice, or soup when you can drink without vomiting. ?Make sure you have little or no nausea before eating solid foods. General instructions Have a responsible adult stay with you until you are awake and alert. Take gyvk-lgo-jfktvwx and prescription medicines only as told by your health care provider. If you smoke, do not smoke without supervision. Keep all follow-up visits as told by your health care provider. This is important. Contact a health care provider if: You keep feeling nauseous or you keep vomiting. You feel light-headed. You develop a rash. You have a fever. Get help right away if: You have trouble breathing. This information is not intended to replace advice given to you by your health care provider. Make sure you discuss any questions you have with your health care provider. Document Released: 02/10/2014 Document Revised: 04/04/2018 Document Reviewed: 08/11/2016 [facility] Patient Education 2020 esolidar. 12/03/2022 09:33:02 Colonoscopy, Adult, Care After Colonoscopy, Adult, Care After This sheet gives you information about how to care for yourself after your procedure. Your health care provider may also give you more specific instructions. If you have problems or questions, contact your health care provider. What can I expect after the procedure? After the procedure, it is common to have: A small amount of blood in your stool for 24 hours after the procedure. Some gas. Mild abdominal cramping or bloating. Follow these instructions at home: General instructions For the first 24 hours after the procedure: ?Do not drive or use machinery. ?Do not sign important documents. ?Do not drink alcohol. ?Do your regular daily activities at a slower pace than normal. ?Eat soft, jykf-qc-djcxwa foods. Take txtk-lpr-tkilpgw or prescription medicines only as told by your health care provider. Relieving cramping and bloating Try walking around when you have cramps or feel bloated. Apply heat to your abdomen as told by your health care provider. Use a heat source that your health care provider recommends, such as a moist heat pack or a heating pad. ?Place a towel between your skin and the heat source. ?Leave the heat on for 20 30 minutes. ?Remove the heat if your skin turns bright red. This is especially important if you are unable to feel pain, heat, or cold. You may have a greater risk of getting burned. Eating and drinking Drink enough fluid to keep your urine pale yellow. Resume your normal diet as instructed by your health care provider. Avoid heavy or fried foods that are hard to digest. Avoid drinking alcohol for as long as instructed by your health care provider. Contact a health care provider if: You have blood in your stool 2 3 days after the procedure. Get help right away if: You have more than a small spotting of blood in your stool. You pass large blood clots in your stool. Your abdomen is swollen. You have nausea or vomiting. You have a fever. You have increasing abdominal pain that is not relieved with medicine. Summary After the procedure, it is common to have a small amount of blood in your stool. You may also have mild abdominal cramping and bloating. For the first 24 hours after the procedure, do not drive or use machinery, sign important documents, or drink alcohol. Contact your health care provider if you have a lot of blood in your stool, nausea or vomiting, a fever, or increased abdominal pain. This information is not intended to replace advice given to you by your health care provider. Make sure you discuss any questions you have with your health care provider. Document Released: 12/04/2004 Document Revised: 02/12/2018 Document Reviewed: 07/03/2016 [facility] Patient Education 2020 esolidar. Follow Up Care 11/23/2022 07:55:53 With:ZEESHAN ROSALES MD Address: [address] [place] [address] [phone] When: Unknown [facility] 12-03-2022 Anesthesiology Consult note Patient: HONORIO TOVAR Age: 62 years Sex: Female : 1960 Associated Diagnoses: None Author: DINA MOODY Assessment Postanesthesia assessment Vitals: Reviewed Results: Vital signs from flowsheet : Vital Signs(Date Range: 12/02/2022 0:00 EDT - 12/03/2022 10:03 EDT) . Mental status: at preoperative baseline, alert & oriented x 4. Respiratory function: lungs are clear to auscultation. Respiratory support: none. CV function: Normal rate. Cardiovascular support: none. Pain. Nausea status: denies nausea. Postoperative hydration status: within normal limits. Digitally Signed by DINA MOODY on 12/03/2022 10:03 AM [facility] 12-03-2022 Summary of episod e note Discharge Instructions Thank you for allowing [facility] to assist you with your healthcare needs. The following is important discharge information regarding your hospital visit. Your Care Team ANNABEL STEINBERG DO What to do next Scheduled Follow-Up Appointments Appointment Type When With Where Contact InformationDB Diabetic Individual Visit ([facility]) 12/31/2022 10:00 AM [facility] Diet Visits [phone] PC OV 01/31/2023 11:00 AM EDT ANNABEL STEINBERG DO [facility] [address] [phone] Follow Up Appointments Follow Up with ZEESHAN ROSALES MD When Where: [address] [place] [address] [phone] Allergies NSAIDs (Nausea) Ozempic (Nausea, Abdominal pain) Trulicity Pen (Abdominal pain, Headache, Nausea) simvastatin (Nausea) Medications Please ask your primary doctor or pharmacist before taking any other medication not listed, including over the counter drugs, herbal medications, vitamins and or supplements as they may interact with your home medications. What How Much When Why Instructions Last Dose Unchanged albuterol (albuterol MDI (90 mcg/ inh) CFC free inhalation aerosol) 2 puff(s) by inhalation Every 4 hours as needed for as needed for wheezing Viral upper respiratory infection Unchanged apixaban (Eliquis 5 mg oral tablet) 1 tab(s) by mouth Two (2) times a day Unchanged aspirin (aspirin 81 mg oral delayed release tablet) 1 tab(s) by mouth Two (2) times a day Unchanged dapagliflozin (Farxiga 10 mg oral tablet) 1 tab(s) by mouth Once a day Unchanged DME (Blood Glucose Test Machine) See instructions Use as directed BID to test blood sugar; Brand type per insurance or patient preference. Dx: E11.9 Unchanged DME (Blood Glucose Test Strips) See instructions Dispense glucose test strips, #200, UAD BID to test blood sugar; Dx: E11.9 Unchanged DME (Freestyle [place] 14 day sensor) See instructions Apply 1 sensor once every 2 weeks as directed. Remove old sensor prior to placing a new one. Rotate application sites Unchanged DME (Freestyle [place]) See instructions Use to check blood sugar as directed Unchanged DME (Pen needles 5 mm) See instructions Diabetes mellitus type 2 Dispense UltraFine pen needles 5mm, #200, use as directed twice daily to inject insulin. Diagnosis: E 11.9 Unchanged DULoxetine (DULoxetine 60 mg oral delayed release capsule) 2 cap by mouth Once a day Diabetic neuropathy Unchanged gabapentin (gabapentin 600 mg oral tablet) 2 tab(s) by mouth Three (3) times a day Sciatica Duration: 90 Days Unchanged hydrochlorothiazide-lisinopril (hydrochlorothiazide-lisinopril 12.5 mg-20 mg oral tablet) 1 tab(s) by mouth Once a day Duration: 90 Days Unchanged hydrOXYzine (hydrOXYzine hydrochloride 50 mg oral tablet) 1 tab(s) by mouth Four (4) times a day as needed for anxiety Unchanged insulin glargine (Lantus Solostar Pen 100 units/ mL 3 mL Pen) 50 unit(s) Subcutaneous Once a day Duration: 30 Days rotate injection sites Unchanged insulin lispro (HumaLOG) (HumaLOG KwikPen 100 units/ mL injectable PEN) 5 unit(s) Subcutaneous Three (3) times a day before meals with meals Unchanged NIFEdipine (NIFEdipine (Eqv-Procardia XL) 60 mg oral tablet, extended release) See instructions TAKE 1 TABLET BY MOUTH EVERY DAY Unchanged omeprazole (omeprazole 20 mg oral delayed release capsule) 1 cap by mouth Once a day Unchanged ondansetron (ondansetron 4 mg oral tablet, disintegrating) 1 tab(s) by mouth Once a day Unchanged pentoxifylline (pentoxifylline 400 mg oral tablet, extended release) 1 tab(s) by mouth Three (3) times a day Please take this list to your next doctor s visit. Bring all medications you take, including over the counter medications, herbals and other supplements with you to your doctor s visit. Patients and families are reminded to discard old lists and to update any records with all medication providers or retail pharmacies. Education Materials Nausea and Vomiting, Adult Nausea is feeling sick to your stomach or feeling that you are about to throw up (vomit). Vomiting is when food in your stomach is thrown up and out of the mouth. Throwing up can make you feel weak. It can also make you lose too much water in your body (get dehydrated). If you lose too much water in your body, you may: Feel tired. Feel thirsty. Have a dry mouth. Have cracked lips. Go pee (urinate) less often. Older adults and people with other diseases or a weak body defense system (immune system) are at higher risk for losing too much water in the body. If you feel sick to your stomach and you throw up, it is important to follow instructions from your doctor about how to take care of yourself. Follow these instructions at home: Watch your symptoms for any changes. Tell your doctor about them. Follow these instructions to care for yourself at home. Eating and drinking Take an ORS (oral rehydration solution). This is a drink that is sold at pharmacies and stores. Drink clear fluids in small amounts as you are able, such as: ? Water. ? Ice chips. ? Fruit juice that has water added (diluted fruit juice). ? Low-calorie sports drinks. Eat bland, yixd-db-medzcz foods in small amounts as you are able, such as: ? Bananas. ? Applesauce. ? Rice. ? Low-fat (lean) meats. ? [place]. ? Crackers. Avoid drinking fluids that have a lot of sugar or caffeine in them. This includes energy drinks, sports drinks, and soda. Avoid alcohol. Avoid spicy or fatty foods. General instructions Take ocpt-kif-yefpbix and prescription medicines only as told by your doctor. Drink enough fluid to keep your pee (urine) pale yellow. Wash your hands often with soap and water. If you cannot use soap and water, use hand associate project manager. Make sure that all people in your home wash their hands well and often. Rest at home while you get better. Watch your condition for any changes. Take slow and deep breaths when you feel sick to your stomach. Keep all follow-up visits as told by your doctor. This is important. Contact a doctor if: Your symptoms get worse. You have new symptoms. You have a fever. You cannot drink fluids without throwing up. You feel sick to your stomach for more than 2 days. You feel light-headed or dizzy. You have a headache. You have muscle cramps. You have a rash. You have pain while peeing. Get help right away if: You have pain in your chest, neck, arm, or jaw. You feel very weak or you pass out (faint). You throw up again and again. You have throw up that is bright red or looks like black coffee grounds. You have bloody or black poop (stools) or poop that looks like tar. You have a very bad headache, a stiff neck, or both. You have very bad pain, cramping, or bloating in your belly (abdomen). You have trouble breathing. You are breathing very quickly. Your heart is beating very quickly. Your skin feels cold and clammy. You feel confused. You have signs of losing too much water in your body, such as: ? Dark pee, very little pee, or no pee. ? Cracked lips. ? Dry mouth. ? Sunken eyes. ? Sleepiness. ? Weakness. These symptoms may be an emergency. Do not wait to see if the symptoms will go away. Get medical help right away. Call your local emergency services (911 in the [place] Do not drive yourself to the hospital. Summary Nausea is feeling sick to your stomach or feeling that you are about to throw up (vomit). Vomiting is when food in your stomach is thrown up and out of the mouth. Follow instructions from your doctor about eating and drinking to keep from losing too much water in your body. Take ivja-lem-xdtneuq and prescription medicines only as told by your doctor. Contact your doctor if your symptoms get worse or you have new symptoms. Keep all follow-up visits as told by your doctor. This is important. This information is not intended to replace advice given to you by your health care provider. Make sure you discuss any questions you have with your health care provider. Document Released: 10/08/2008 Document Revised: 08/14/2019 Document Reviewed: 09/30/2018 [facility] Patient Education 2020 esolidar. Moderate Conscious Sedation, Adult, Care After These instructions provide you with information about caring for yourself after your procedure. Your health care provider may also give you more specific instructions. Your treatment has been planned according to current medical practices, but problems sometimes occur. Call your health care provider if you have any problems or questions after your procedure. What can I expect after the procedure? After your procedure, it is common: To feel sleepy for several hours. To feel clumsy and have poor balance for several hours. To have poor judgment for several hours. To vomit if you eat too soon. Follow these instructions at home: For at least 24 hours after the procedure: Do not: ? Participate in activities where you could fall or become injured. ? Drive. ? Use heavy machinery. ? Drink alcohol. ? Take sleeping pills or medicines that cause drowsiness. ? Make important decisions or sign legal documents. ? Take care of children on your own. Rest. Eating and drinking Follow the diet recommended by your health care provider. If you vomit: ? Drink water, juice, or soup when you can drink without vomiting. ? Make sure you have little or no nausea before eating solid foods. General instructions Have a responsible adult stay with you until you are awake and alert. Take kast-lmg-hyyxezb and prescription medicines only as told by your health care provider. If you smoke, do not smoke without supervision. Keep all follow-up visits as told by your health care provider. This is important. Contact a health care provider if: You keep feeling nauseous or you keep vomiting. You feel light-headed. You develop a rash. You have a fever. Get help right away if: You have trouble breathing. This information is not intended to replace advice given to you by your health care provider. Make sure you discuss any questions you have with your health care provider. Document Released: 02/10/2014 Document Revised: 04/04/2018 Document Reviewed: 08/11/2016 [employer] Patient Education 2020 [employer] Colonoscopy, Adult, Care After This sheet gives you information about how to care for yourself after your procedure. Your health care provider may also give you more specific instructions. If you have problems or questions, contact your health care provider. What can I expect after the procedure? After the procedure, it is common to have: A small amount of blood in your stool for 24 hours after the procedure. Some gas. Mild abdominal cramping or bloating. Follow these instructions at home: General instructions For the first 24 hours after the procedure: ? Do not drive or use machinery. ? Do not sign important documents. ? Do not drink alcohol. ? Do your regular daily activities at a slower pace than normal. ? Eat soft, nzpp-qy-gcsmwq foods. Take lnhx-kpl-aqeqnaw or prescription medicines only as told by your health care provider. Relieving cramping and bloating Try walking around when you have cramps or feel bloated. Apply heat to your abdomen as told by your health care provider. Use a heat source that your health care provider recommends, such as a moist heat pack or a heating pad. ? Place a towel between your skin and the heat source. ? Leave the heat on for 20 30 minutes. ? Remove the heat if your skin turns bright red. This is especially important if you are unable to feel pain, heat, or cold. You may have a greater risk of getting burned. Eating and drinking Drink enough fluid to keep your urine pale yellow. Resume your normal diet as instructed by your health care provider. Avoid heavy or fried foods that are hard to digest. Avoid drinking alcohol for as long as instructed by your health care provider. Contact a health care provider if: You have blood in your stool 2 3 days after the procedure. Get help right away if: You have more than a small spotting of blood in your stool. You pass large blood clots in your stool. Your abdomen is swollen. You have nausea or vomiting. You have a fever. You have increasing abdominal pain that is not relieved with medicine. Summary After the procedure, it is common to have a small amount of blood in your stool. You may also have mild abdominal cramping and bloating. For the first 24 hours after the procedure, do not drive or use machinery, sign important documents, or drink alcohol. Contact your health care provider if you have a lot of blood in your stool, nausea or vomiting, a fever, or increased abdominal pain. This information is not intended to replace advice given to you by your health care provider. Make sure you discuss any questions you have with your health care provider. Document Released: 12/04/2004 Document Revised: 02/12/2018 Document Reviewed: 07/03/2016 [employer] Patient Education 2020 [employer]. Additional Information VACCINATE! IT SAVES LIVES! Members of the community who have not yet received the COVID-19 vaccine and would like to receive it can visit one of [facility] vaccine clinics. There are many vaccine clinic locations within the [facility]. For locations and available times, please visit https://gettheshot.coronavirus.[place].gov/. It is important to note that some COVID mobile vaccine clinics are held outdoors and may be canceled in rainy or stormy conditions. To learn more about pediatric vaccinations (ages 5-11), we invite you to visit the [facility] webpage. [email or web address] To learn more about the COVID-19 vaccine, we invite you to visit the CDC website for a list of frequently asked questions.https://www.cdc.gov/cor onavirus/2019-ncov/vaccines/faq.h tml [facility] Patient Portal Access Instructions: Stay connected with your healthcare team and access your personal medical information anytime with the [facility] Patient Portal. Please follow the directions below to create your [facility] [employer] account: 1.Access the email account you provided upon registration to the hospital/physician office.2.Look for an invitation email from [facility].3.Open the email and access the invitation link: Accept Invitation to [facility].4.Fill in the required fuentes to create your account. To access your account, visit [employer]. Click the blue button labeled Access Patient Portal and then log in with the username and password that you created in the steps above. You will be able to view your test results, lab results, a summary of your visits, upcoming appointments and more. There is also a convenient messaging option where you can send secure messages to your provider. In addition, you will have the ability to download any documents or summaries to your computer and/or send the information securely to a physician. Remember that your healthcare information is confidential, so carefully consider who you will allow to register on the [facility] Patient Portal for access to your information. You can also access the [facility] on the [facility] radha. Simply click on Patient Portal and then log into your account. If you would like to receive a full copy of your medical records, please contact the [facility] Medical Records Department by calling [phone], Saturday through Saturday between 8 a.m. and 4:30 p.m. HOW TO SAFELY DISPOSE OF PRESCRIPTION MEDICATIONS Please use one of the following methods to safely dispose of your unused medications. 1.Use a drug disposal kit: the drug disposal pouch allows you to safely discard your old and unused drugs. Ask your nurse to give you one when you are discharged.2.Visit a local take-back location: Many local pharmacies and police departments have programs that collect old and unwanted prescription drugs. Call your local pharmacy or go to http://[employer].The Meish[employer]ie website/6I4Mf1s to find one close to you.3.Make use of household items: Use cat litter or old coffee grounds to dispose medications if other options are not available. Mix your drugs with these household products, seal them in an airtight container and throw it into the garbage. Call [facility]: [phone] to be sure your drugs can be disposed of in this way. Some medicines may require a different approach.4.Never flush your medications down the toilet. IF YOU HAVE BEEN PRESCRIBED AN OPIOID FOR PAIN If you have been prescribed an opioid (such as hydrocodone, oxycodone or morphine), it is critical to understand the possible side effects and risks of opioid pain medications. Even when taken as directed, opioids can have several side effects including: Tolerance, meaning you might need to take more of a medication for the same pain relief. Nausea, vomiting and/or constipation. Sleepiness, dizziness, dry mouth, confusion, depression or itching. Physical dependence, meaning you have withdrawal symptoms when a medication is stopped, can develop within a few days. KNOW YOUR RESPONSIBILITIES It is important to know exactly how much and how often to take the opioid pain medications you are prescribed. Never take opioids in higher amounts or more often than prescribed. Do not combine opioids with alcohol or other drugs that cause drowsiness, such as benzodiazepines, also known as benzos, including diazepam and alprazolam, muscle relaxants or sleep aids. Never sell or share prescription opioids. This is illegal. Store opioids in a secure place and out of reach of others (including children, family, friends and visitors). The last page of this document has been signed and retained as a CHART COPY. Signatures Patient Education Materials Nausea and Vomiting, Adult, Ulse-vl-Moph Moderate Conscious Sedation, Adult, Care After Colonoscopy, Adult, Care After Medication Leaflets My discharge plan and instructions have been reviewed and explained to me and I,HONORIO TOVAR understand my current condition and have read and understand these discharge instructions. I have received a written copy of the plan/instructions. If I have questions, I am aware that I should contact my doctor. Patient/Supervisor Prop Making Signature: Date/Time: Relationship to Patient: ____ Witness Name/Signature: Date/Time: [facility] 12-03-2022 Anesthesiology Consult note Patient: HONORIO TOVAR Age: 62 years Sex: Female : 1960 Associated Diagnoses: None Author: DINA MOODY Preoperative Information Time of last food or liquid consumption: 12/03/2022 04:30:00 Anesthesia history Patient's history: negative. Family's history: negative. Health Status Allergies: Allergic Reactions (Selected) Severity Not Documented Ozempic- Abdominal pain and nausea. Trulicity Pen- Nausea, abdominal pain and headache. Nonallergic Reactions (Selected) Severity Not Documented NSAIDs- Nausea. Simvastatin- Nausea., Allergies (4) ActiveReaction NSAIDsNausea OzempicAbdominal pain simvastatinNausea Trulicity PenNausea Current medications: (Selected) Inpatient Medications Ordered LR 1,000 mL: 50 mL/hr, Intravenous Prescriptions Prescribed Blood Glucose Test Machine: See Instructions, Use as directed BID to test blood sugar; Brand type per insurance or patient preference. Dx: E11.9, 1 EA, 0 Refill(s) Blood Glucose Test Strips: See Instructions, Dispense glucose test strips, #200, UAD BID to test blood sugar; Dx: E11.9, 200 EA, 3 Refill(s) DULoxetine 60 mg oral delayed release capsule: 120 mg, 2 cap(s), Oral, qDay, 180 cap(s), 3 Refill(s) Eliquis 5 mg oral tablet: 5 mg, 1 tab(s), Oral, BID, 180 tab(s), 4 Refill(s) Farxiga 10 mg oral tablet: 10 mg, 1 tab(s), Oral, qDay, 90 tab(s), 3 Refill(s) Freestyle [place] 14 day sensor: See Instructions, Apply 1 sensor once every 2 weeks as directed. Remove old sensor prior to placing a new one. Rotate application sites, 6 EA, 3 Refill(s) Freestyle [place]: See Instructions, Use to check blood sugar as directed, 1 EA, 0 Refill(s) HumaLOG KwikPen 100 units/mL injectable PEN: 5 unit(s), Subcutaneous, TIDAC, with meals, 15 mL, 3 Refill(s) Lantus Solostar Pen 100 units/mL 3 mL Pen: 50 unit(s), Subcutaneous, qDay, for 30 day(s), rotate injection sites, 15 mL, 6 Refill(s) NIFEdipine (Eqv-Procardia XL) 60 mg oral tablet, extended release: See Instructions, TAKE 1 TABLET BY MOUTH EVERY DAY, 90 tab(s), 3 Refill(s) Pen needles 5 mm: See Instructions, Dispense UltraFine pen needles 5mm, #200, use as directed twice daily to inject insulin. Diagnosis: E 11.9, 200 EA, 3 Refill(s) albuterol MDI (90 mcg/inh) CFC free inhalation aerosol: 2 puff(s), Inhalation, q4h, PRN: as needed for wheezing, 18 gram(s), 2 Refill(s) aspirin 81 mg oral delayed release tablet: 81 mg, 1 tab(s), Oral, BID, 90 tab(s), 3 Refill(s) gabapentin 600 mg oral tablet: 1,200 mg, 2 tab(s), Oral, TID, for 90 day(s), 540 tab(s), 0 Refill(s) hydrOXYzine hydrochloride 50 mg oral tablet: 50 mg, 1 tab(s), Oral, QID, PRN: anxiety, 360 tab(s), 3 Refill(s) hydrochlorothiazide-lisinopril 12.5 mg-20 mg oral tablet: 1 tab(s), Oral, qDay, for 90 day(s), 90 tab(s), 3 Refill(s) omeprazole 20 mg oral delayed release capsule: 20 mg, 1 cap(s), Oral, qDay, 90 cap(s), 0 Refill(s) ondansetron 4 mg oral tablet, disintegratin mg, 1 tab(s), Oral, qDay, 90 tab(s), 3 Refill(s) pentoxifylline 400 mg oral tablet, extended release: 400 mg, 1 tab(s), Oral, TID, 270 tab(s), 3 Refill(s), Medications (1) Active Scheduled: (0) Continuous: (1) Lactated Ringers 1,000 mL 1,000 mL, Intravenous, 50 mL/hr PRN: (0) Problem list: Medical Anxiety / SNOMED CT 83060737 / Confirmed Chronic low back pain / SNOMED CT 995156426 / Confirmed Clotting disorder / SNOMED CT 988806298 / Confirmed Diabetes mellitus type 2 / SNOMED CT 135700713 / Confirmed Sciatica / SNOMED CT 06252463 / Confirmed Eczema / SNOMED CT 90955045 / Confirmed Fibromyalgia / SNOMED CT 323401017 / Confirmed GERD - Gastro-esophageal reflux disease / SNOMED CT 5768341877 / Confirmed History of DVT of lower extremity / SNOMED CT 7150284136 / Confirmed History of cocaine use / SNOMED CT 3215601020 / Confirmed Hearing loss on left / SNOMED CT 0273511327 / Confirmed CONGESTIVE HEART FAILURE, UNSPECIFIED / SNOMED CT 415294886 / Confirmed High blood pressure / SNOMED CT 92513530 / Confirmed Soft tissue mass / SNOMED CT 1515947278 / Confirmed Depression with anxiety / SNOMED CT 082176019 / Confirmed Mixed hyperlipidemia / SNOMED CT 983901062 / Confirmed Muscle weakness / SNOMED CT 32785053 / Confirmed Tobacco dependence / SNOMED CT 65406248 / Confirmed Osteoarthritis of right knee / SNOMED CT 2412228713 / Confirmed Pain in toe of left foot / SNOMED CT 985084164 / Confirmed Vascular disease, peripheral / SNOMED CT 3454134926 / Confirmed Persistent insomnia / SNOMED CT 494311987 / Confirmed Diabetic neuropathy / SNOMED CT 2463065925 / Confirmed Multiple falls / SNOMED CT 666520094 / Confirmed Urinary urgency / SNOMED CT 050533542 / Confirmed, Active Problems (27) Anxiety Chronic low back pain Clotting disorder CONGESTIVE HEART FAILURE, UNSPECIFIED Depression with anxiety Diabetes mellitus type 2 Diabetic neuropathy Eczema Fibromyalgia GERD - Gastro-esophageal reflux disease Hearing loss on left High blood pressure History of cocaine use History of DVT of lower extremity Irritable bowel syndrome Mixed hyperlipidemia Multiple falls Muscle weakness Osteoarthritis of right knee Pain in toe of left foot Persistent insomnia Sciatica Soft tissue mass Tobacco dependence Tobacco use Urinary urgency Vascular disease, peripheral Histories Past Medical History: Active High blood pressure (47209220) Diabetes mellitus type 2 (813366390) Clotting disorder (628914861) Anxiety (12613935) GERD - Gastro-esophageal reflux disease (1971735982) Sciatica (32042552) Comments: 06/19/2017 EST 14:00 Lizbeth Garcia RN Left Resolved PE (pulmonary embolism) ([id number]): Resolved. DVT (deep venous thrombosis) ([id number]): Resolved. Skin lesion (341392811): Resolved. Comments: 06/19/2017 EST 14:00 Lizbeth Garcia RN Left breast Inflammation of nasal mucosa (799215106): Resolved. Diarrhea (105680661): Resolved., PVD, recent stents X2 to right femoral artery, disease present on left being evaluated. COPD, smoker, Family History: Diabetes mellitus Father Sister Bleeding disorder Sister Stroke Mother HTN - Hypertension Father Sister Alzheimer disease Mother Procedure history: Amputation of finger tip (350629218) in the month of 05/2018 at 58 Years. Comments: 11/25/2018 12:33 TAMIKA - Andree Whelan RN d/t necrosis from clot Carpal tunnel release (601670544) in the month of 12/2007 at 47 Years. Comments: 06/19/2017 14:01 LIZBETH GARCIA RN Bilateral Cyst of face (8287261420) in 2007 at 47 Years. Abdominal hysterectomy (206169115) in 1994 at 34 Years. Cholecystectomy (57498404) in 1979 at 19 Years. Removal of pilonidal cyst (8202207940). Colonoscopy (585557470). Appendectomy (554449370). Social History Social & Psychosocial Habits Alcohol 11/20/2016Risk Assessment: Denies Alcohol Use 11/25/2018 Use: Current Frequency: 1-2 times per month Employment/School 05/29/2019 Status: Retired Substance Abuse 11/20/2016Risk Assessment: Denies Substance Abuse 05/29/2019 Use: Never Tobacco 02/28/2021 Tobacco Use: 1 pack of cigarettes daily Exercise Comment: none - 05/29/2019 13:30 - Isela Brooks LPN Home/Environment 05/29/2019 Domestic Concerns None Living situation: Home/Independent Lives In 1st floor bathroom, Apartment Nutrition/Health 05/29/2019 Type of diet: Diabetic Eating Difficulties None . Physical Examination No qualifying data available General: Alert and oriented. Airway: Normal temporomandibular joint mobility. Mallampati classification: II (soft palate, fauces, uvula visible). Head: Normocephalic. Dentition Evaluation: Intact. Neck: Supple. Respiratory: Lungs are clear to auscultation. Cardiovascular: Normal rate. Heart Sounds: Normal. Gastrointestinal: Soft. Musculoskeletal Normal range of motion. Integumentary: Intact. Neurologic: Alert. Review / Management Results review: No qualifying data available . Assessment and Plan [place] [employer] Anesthesiologists (ASA) physical status classification: Class IV. Anesthetic Preoperative Plan Premedication: None. Anesthetic technique: MAC. Induction: intravenously. Postoperative pain management: Per surgeon. Risks discussed: nausea, vomiting, headache, sore throat, dental injury, hypotension, allergic reaction, serious complications. Informed consent: signed by patient. Digitally Signed by DINA MOODY on 12/03/2022 08:10 AM [facility] 07-10-2022 Hospital Discharg e instructions Patient Education 07/10/2022 18:17:37 Back Pain (Acute or Chronic) Back Pain (Acute or Chronic) Back pain is one of the most common problems. The good news is that most people feel better in 1 to 2 weeks, and most of the rest in 1 to 2 months. Most people can remain active. People who have pain describe it differently not everyone is the same. The pain can be sharp, stabbing, shooting, aching, cramping or burning. Movement, standing, bending, lifting, sitting, or walking may worsen pain. It can be localized to one spot or area, or it can be more generalized. It can spread or radiate upwards, to the front, or go down your arms or legs (sciatica). It can cause muscle spasm. Most of the time, mechanical problems with the muscles or spine cause the pain. Mechanical problems are usually caused by an injury to the muscles or ligaments. While illness can cause back pain, it is usually not caused by a serious illness. Mechanical problems include: Physical activity such as sports, exercise, work, or normal activity Overexertion, lifting, pushing, pulling incorrectly or too aggressively Sudden twisting, bending, or stretching from an accident, or accidental movement Poor posture Stretching or moving wrong, without noticing pain at the time Poor coordination, lack of regular exercise (check with your doctor about this) Spinal disc disease or arthritis Stress Pain can also be related to , or illness like appendicitis, bladder or kidney infections, pelvic infections, and many other things. Acute back pain usually gets better in 1 to 2 weeks. Back pain related to disk disease, arthritis in the spinal joints or spinal stenosis (narrowing of the spinal canal) can become chronic and last for months or years. Unless you had a physical injury (for example, a car accident or fall) X-rays are usually not needed for the initial evaluation of back pain. If pain continues and does not respond to medical treatment, X-rays and other tests may be needed. Home care Try these home care recommendations: When in bed, try to find a position of comfort. A firm mattress is best. Try lying flat on your back with pillows under your knees. You can also try lying on your side with your knees bent up towards your chest and a pillow between your knees. At first, do not try to stretch out the sore spots. If there is a strain, it is not like the good soreness you get after exercising without an injury. In this case, stretching may make it worse. Don't sit for long periods, as in a long car ride or during other travel. This puts more stress on the lower back than standing or walking. During the first 24 to 72 hours after an acute injury or flare up of chronic back pain, apply an ice pack to the painful area for 20 minutes and then remove it for 20 minutes. Do this over a period of 60 to 90 minutes or several times a day. This will reduce swelling and pain. Wrap the ice pack in a thin towel or plastic to protect your skin. You can start with ice, then switch to heat. Heat (hot shower, hot bath, or heating pad) reduces pain and works well for muscle spasms. Heat can be applied to the painful area for 20 minutes then remove it for 20 minutes. Do this over a period of 60 to 90 minutes or several times a day. Do not sleep on a heating pad. It can lead to skin pino or tissue damage. You can alternate ice and heat therapy. Talk with your doctor about the best treatment for your back pain. Therapeutic massage can help relax the back muscles without stretching them. Be aware of safe lifting methods and do not lift anything without stretching first. Medicines Talk to your doctor before using medicine, especially if you have other medical problems or are taking other medicines. You may use oxov-jqs-buemtnt medicine as directed on the bottle to control pain, unless another pain medicine was prescribed. If you have chronic conditions like diabetes, liver or kidney disease, stomach ulcers, or gastrointestinal bleeding, or are taking blood thinners, talk to your doctor before taking any medicine. Be careful if you are given a prescription medicines, narcotics, or medicine for muscle spasms. They can cause drowsiness, affect your coordination, reflexes, and judgement. Do not drive or operate heavy machinery. Follow-up care Follow up with your healthcare provider, or as advised. A radiologist will review any X-rays that were taken. Your provide will notify you of any new findings that may affect your care. Call 911 Call 911 if any of the following occur: Trouble breathing Confusion Very drowsy or trouble awakening Fainting or loss of consciousness Rapid or very slow heart rate Loss of bowel or bladder control When to seek medical advice Call your healthcare provider right away if any of these occur: Pain becomes worse or spreads to your legs Weakness or numbness in one or both legs Numbness in the groin or genital area [phone] [employer]. [address] [place] [id number]. All rights reserved. This information is not intended as a substitute for professional medical care. Always follow your healthcare professional's instructions. 07/10/2022 18:17:33 DEHYDRATION (6y-Adult) Dehydration (Adult) Dehydration occurs when your body loses too much fluid. This may be the result of vomiting a lot or from diarrhea, sweating a lot, or a high fever. It may also happen if you don t drink enough fluid when you re sick. Misuse of diuretics (water pills) can also be a cause. Symptoms include thirst and feeling dizzy, weak, fatigued, or very drowsy. The diet described below is usually enough to treat most cases. Sometimes you may need medicine. Home care Follow these guidelines for home care: Drink at least 12 8-ounce glasses of fluid every day to overcome the dehydration. Fluid may include water; orange juice; lemonade; apple, grape, and cranberry juice; clear fruit drinks; electrolyte replacement and sports drinks; and teas and coffee without caffeine. If you have been diagnosed with a kidney disease, ask your doctor how much and what types of fluids you should drink to prevent dehydration. If you have kidney disease, drinking too much fluid can cause it build up in the your body and be dangerous to your health. If you have fever, muscle aching, or headache from a viral syndrome, you may use acetaminophen or ibuprofen, unless another medicine was prescribed for this. If you have chronic liver or kidney disease or ever had a stomach ulcer or GI bleeding, talk with your doctor before using these medicines. Don't take aspirin if you are younger than 18 and are ill with a fever. Aspirin raises the chance for severe liver injury. Follow-up care Follow up with your health care provider if you don't get better in the next 24 to 48 hours. When to seek medical advice Call your health care provider right away if any of these occur: Continued vomiting (can t keep liquids down) Frequent diarrhea (more than 5 times a day); blood (red or black color) or mucus in diarrhea Blood in vomit or stool Swollen abdomen or increasing abdominal pain Weakness, dizziness, or fainting Unusually drowsy or confused Reduced urine output or extreme thirst Fever of 100.4 F (38 C) oral or higher that does not get better with fever medication [id number] [employer]. [address] [place] [address]51. All rights reserved. This information is not intended as a substitute for professional medical care. Always follow your healthcare professional's instructions. Follow Up Care 07/10/2022 15:22:52 With:ANNABEL STEINBERG DO Address: [address] [place] [phone] When:2-4 days [facility] 07-10-2022 Emergency department Discharge summary Discharge Instructions Thank you for allowing [facility] to assist you with your healthcare needs. The following is important discharge information regarding your hospital visit. Diagnosis from Today's Visit Dehydration Back pain Leg pain-swelling Weakness or fatigue What to Do Next Instructions from Your Care Team No qualifying data available. Post Acute Orders No qualifying data available. You Need to Schedule the Following Appointments Follow Up with ANNABEL STEINBERG DO When Within 2-4 days Where: [address] [place] [phone] Allergies NSAIDs (Nausea) Ozempic (Nausea, Abdominal pain) Trulicity Pen (Abdominal pain, Headache, Nausea) simvastatin (Nausea) Medications Please ask your primary doctor or pharmacist before taking any other medication not listed, including over the counter drugs, herbal medications, vitamins and or supplements as they may interact with your home medications. What How Much When Why Instructions Last Dose New traMADol (Ultram 50 mg oral tablet) 1 tab(s) by mouth Every 12 hours Dehydration Back pain Duration: 7 Days Printed Prescription Unchanged albuterol (albuterol MDI (90 mcg/ inh) CFC free inhalation aerosol) 2 puff(s) by inhalation Every 4 hours as needed for as needed for wheezing Viral upper respiratory infection Unchanged apixaban (Eliquis 5 mg oral tablet) 1 tab(s) by mouth Two (2) times a day Unchanged aspirin (aspirin 81 mg oral delayed release tablet) 1 tab(s) by mouth Two (2) times a day Unchanged dapagliflozin (Farxiga 10 mg oral tablet) 1 tab(s) by mouth Once a day Unchanged DME (Blood Glucose Test Machine) See instructions Use as directed BID to test blood sugar; Brand type per insurance or patient preference. Dx: E11.9 Unchanged DME (Blood Glucose Test Strips) See instructions Dispense glucose test strips, #200, UAD BID to test blood sugar; Dx: E11.9 Unchanged DME (Freestyle [place] 14 day sensor) See instructions Apply 1 sensor once every 2 weeks as directed. Remove old sensor prior to placing a new one. Rotate application sites Unchanged DME (Freestyle [place]) See instructions Use to check blood sugar as directed Unchanged DME (Pen needles 5 mm) See instructions Diabetes mellitus type 2 Dispense UltraFine pen needles 5mm, #100, use as directed daily to inject insulin. Diagnosis: E 11.9 Unchanged DULoxetine (DULoxetine 60 mg oral delayed release capsule) 2 cap by mouth Once a day Diabetic neuropathy Unchanged gabapentin (gabapentin 600 mg oral tablet) 2 tab(s) by mouth Three (3) times a day Sciatica Duration: 90 Days Unchanged hydrochlorothiazide-lisinopril (hydrochlorothiazide-lisinopril 12.5 mg-20 mg oral tablet) 1 tab(s) by mouth Once a day Duration: 90 Days Unchanged hydrOXYzine (hydrOXYzine hydrochloride 50 mg oral tablet) 1 tab(s) by mouth Four (4) times a day as needed for anxiety Unchanged insulin glargine (Lantus Solostar Pen 100 units/ mL 3 mL Pen) 30 unit(s) Subcutaneous Once a day Duration: 90 Days rotate injection sites Unchanged NIFEdipine (NIFEdipine (Eqv-Procardia XL) 60 mg oral tablet, extended release) See instructions TAKE 1 TABLET BY MOUTH EVERY DAY Unchanged omeprazole (omeprazole 20 mg oral delayed release capsule) 1 cap by mouth Once a day Unchanged ondansetron (ondansetron 4 mg oral tablet, disintegrating) 1 tab(s) by mouth Once a day Unchanged pentoxifylline (pentoxifylline 400 mg oral tablet, extended release) 1 tab(s) by mouth Three (3) times a day Please take this list to your next doctor s visit. Bring all medications you take, including over the counter medications, herbals and other supplements with you to your doctor s visit. Patients and families are reminded to discard old lists and to update any records with all medication providers or retail pharmacies. Education Materials Back Pain (Acute or Chronic) Back pain is one of the most common problems. The good news is that most people feel better in 1 to 2 weeks, and most of the rest in 1 to 2 months. Most people can remain active. People who have pain describe it differently not everyone is the same. The pain can be sharp, stabbing, shooting, aching, cramping or burning. Movement, standing, bending, lifting, sitting, or walking may worsen pain. It can be localized to one spot or area, or it can be more generalized. It can spread or radiate upwards, to the front, or go down your arms or legs (sciatica). It can cause muscle spasm. Most of the time, mechanical problems with the muscles or spine cause the pain. Mechanical problems are usually caused by an injury to the muscles or ligaments. While illness can cause back pain, it is usually not caused by a serious illness. Mechanical problems include: Physical activity such as sports, exercise, work, or normal activity Overexertion, lifting, pushing, pulling incorrectly or too aggressively Sudden twisting, bending, or stretching from an accident, or accidental movement Poor posture Stretching or moving wrong, without noticing pain at the time Poor coordination, lack of regular exercise (check with your doctor about this) Spinal disc disease or arthritis Stress Pain can also be related to , or illness like appendicitis, bladder or kidney infections, pelvic infections, and many other things. Acute back pain usually gets better in 1 to 2 weeks. Back pain related to disk disease, arthritis in the spinal joints or spinal stenosis (narrowing of the spinal canal) can become chronic and last for months or years. Unless you had a physical injury (for example, a car accident or fall) X-rays are usually not needed for the initial evaluation of back pain. If pain continues and does not respond to medical treatment, X-rays and other tests may be needed. Home care Try these home care recommendations: When in bed, try to find a position of comfort. A firm mattress is best. Try lying flat on your back with pillows under your knees. You can also try lying on your side with your knees bent up towards your chest and a pillow between your knees. At first, do not try to stretch out the sore spots. If there is a strain, it is not like the good soreness you get after exercising without an injury. In this case, stretching may make it worse. Don't sit for long periods, as in a long car ride or during other travel. This puts more stress on the lower back than standing or walking. During the first 24 to 72 hours after an acute injury or flare up of chronic back pain, apply an ice pack to the painful area for 20 minutes and then remove it for 20 minutes. Do this over a period of 60 to 90 minutes or several times a day. This will reduce swelling and pain. Wrap the ice pack in a thin towel or plastic to protect your skin. You can start with ice, then switch to heat. Heat (hot shower, hot bath, or heating pad) reduces pain and works well for muscle spasms. Heat can be applied to the painful area for 20 minutes then remove it for 20 minutes. Do this over a period of 60 to 90 minutes or several times a day. Do not sleep on a heating pad. It can lead to skin pino or tissue damage. You can alternate ice and heat therapy. Talk with your doctor about the best treatment for your back pain. Therapeutic massage can help relax the back muscles without stretching them. Be aware of safe lifting methods and do not lift anything without stretching first. Medicines Talk to your doctor before using medicine, especially if you have other medical problems or are taking other medicines. You may use fzfc-iat-[id number] medicine as directed on the bottle to control pain, unless another pain medicine was prescribed. If you have chronic conditions like diabetes, liver or kidney disease, stomach ulcers, or gastrointestinal bleeding, or are taking blood thinners, talk to your doctor before taking any medicine. Be careful if you are given a prescription medicines, narcotics, or medicine for muscle spasms. They can cause drowsiness, affect your coordination, reflexes, and judgement. Do not drive or operate heavy machinery. Follow-up care Follow up with your healthcare provider, or as advised. A radiologist will review any X-rays that were taken. Your provide will notify you of any new findings that may affect your care. Call 911 Call 911 if any of the following occur: Trouble breathing Confusion Very drowsy or trouble awakening Fainting or loss of consciousness Rapid or very slow heart rate Loss of bowel or bladder control When to seek medical advice Call your healthcare provider right away if any of these occur: Pain becomes worse or spreads to your legs Weakness or numbness in one or both legs Numbness in the groin or genital area [id number] [employer]. [address] [place] [address]. All rights reserved. This information is not intended as a substitute for professional medical care. Always follow your healthcare professional's instructions. Dehydration (Adult) Dehydration occurs when your body loses too much fluid. This may be the result of vomiting a lot or from diarrhea, sweating a lot, or a high fever. It may also happen if you don t drink enough fluid when you re sick. Misuse of diuretics (water pills) can also be a cause. Symptoms include thirst and feeling dizzy, weak, fatigued, or very drowsy. The diet described below is usually enough to treat most cases. Sometimes you may need medicine. Home care Follow these guidelines for home care: Drink at least 12 8-ounce glasses of fluid every day to overcome the dehydration. Fluid may include water; orange juice; lemonade; apple, grape, and cranberry juice; clear fruit drinks; electrolyte replacement and sports drinks; and teas and coffee without caffeine. If you have been diagnosed with a kidney disease, ask your doctor how much and what types of fluids you should drink to prevent dehydration. If you have kidney disease, drinking too much fluid can cause it build up in the your body and be dangerous to your health. If you have fever, muscle aching, or headache from a viral syndrome, you may use acetaminophen or ibuprofen, unless another medicine was prescribed for this. If you have chronic liver or kidney disease or ever had a stomach ulcer or GI bleeding, talk with your doctor before using these medicines. Don't take aspirin if you are younger than 18 and are ill with a fever. Aspirin raises the chance for severe liver injury. Follow-up care Follow up with your health care provider if you don't get better in the next 24 to 48 hours. When to seek medical advice Call your health care provider right away if any of these occur: Continued vomiting (can t keep liquids down) Frequent diarrhea (more than 5 times a day); blood (red or black color) or mucus in diarrhea Blood in vomit or stool Swollen abdomen or increasing abdominal pain Weakness, dizziness, or fainting Unusually drowsy or confused Reduced urine output or extreme thirst Fever of 100.4 F (38 C) oral or higher that does not get better with fever medication 4704-0125 [employer]. [address] [place] [address]. All rights reserved. This information is not intended as a substitute for professional medical care. Always follow your healthcare professional's instructions. Additional Information VACCINATE! IT SAVES LIVES! Members of the community who have not yet received the COVID-19 vaccine and would like to receive it can visit one of [facility] vaccine clinics. There are many vaccine clinic locations within the [facility]. For locations and available times, please visit [email or web address] It is important to note that some COVID mobile vaccine clinics are held outdoors and may be canceled in rainy or stormy conditions. To learn more about pediatric vaccinations (ages 5-11), we invite you to visit the [facility] webpage. [email or web address] [email or web address]-[email or web address] To learn more about the COVID-19 vaccine, we invite you to visit the CDC website for a list of frequently asked questions. https://www.cdc.gov/coronavirus/2 019-ncov/vaccines/faq.html [facility] Patient Portal Access Instructions: Stay connected with your healthcare team and access your personal medical information anytime with the [facility] Patient Portal. If you would like a full copy of your medical records please contact the [facility] Medical Records Department Saturday through Saturday between 8a.m. and 4:30p.m. Please follow the directions below to access the portal: 1.Access the email account you provided upon registration to the [facility].2.Look for an invitation email from [facility].3.Open the email and access the invitation link: Accept Invitation to [facility].Fill in the required fuentes to create your account. Sign into www.[employer] with your username and password that you created in the above steps to stay up to date. You can then view a summary of results, a summary of your visits, and the ability to download your summaries to your computer or send the information securely to a physician. Remember that your healthcare information is confidential, so carefully consider who you will allow to register on the [employer] Patient Portal for access to your information. You can also access the [facility] Patient Portal on the [employer]. Simply click on Health Records under Health Data and then click on the [employer] logo. HOW TO SAFELY DISPOSE OF PRESCRIPTION MEDICATIONS Please use one of the following methods to safely dispose of your unused medications. 1.Use a drug disposal kit: the drug disposal pouch allows you to safely discard your old and unused drugs. Ask your nurse to give you one when you are discharged.2.Visit a local take-back location: Many local pharmacies and police departments have programs that collect old and unwanted prescription drugs. Call your local pharmacy or go to http://[employer].The [employer] website/0O9Lc9f to find one close to you.3.Make use of household items: Use cat litter or old coffee grounds to dispose medications if other options are not available. Mix your drugs with these household products, seal them in an airtight container and throw it into the garbage. Call [facility]: [phone] to be sure your drugs can be disposed of in this way. Some medicines may require a different approach.4.Never flush your medications down the toilet. IF YOU HAVE BEEN PRESCRIBED AN OPIOIDS FOR PAIN If you have been prescribed an opioid (such as hydrocodone, oxycodone or morphine), it is critical to understand the possible side effects and risks of opioid pain medications. Even when taken as directed, opioids can have several side effects including: Tolerance, meaning you might need to take more of a medication for the same pain relief. Nausea, vomiting and/or constipation. Sleepiness, dizziness, dry mouth, confusion, depression or itching. Physical dependence, meaning you have withdrawal symptoms when a medication is stopped ? this can develop within a few days. KNOW YOUR RESPONSIBILITIES It is important to know exactly how much and how often to take the opioid pain medications you are prescribed. Never take opioids in higher amounts or more often than prescribed. Do not combine opioids with alcohol or other drugs that cause drowsiness, such as benzodiazepines, also known as benzos, including diazepam and alprazolam, muscle relaxants or sleep aids. Never sell or share prescription opioids. This is illegal. Store opioids in a secure place and out of reach of others (including children, family, friends and visitors). The last page(s) of this document has been signed and retained as a CHART COPY Signatures Patient Education Materials Back Pain (Acute or Chronic) DEHYDRATION (6y-Adult) Medication Leaflets My discharge plan and instructions have been reviewed and explained to me and ISATOVAR HONORIO Funmi understand my current condition and have read and understand these discharge instructions. I have received a written copy of the plan/instructions. If I have questions, I am aware that I should contact my doctor. Patient/Supervisor Prop Making Signature: Date/Time: Relationship to Patient: ____ Witness Name/Signature: Date/Time: [facility] 07-10-2022 Note ORIGINAL EXAMINATION: CT OF THE ABDOMEN AND PELVIS WITH CONTRAST 07/10/2022 5:12 pm TECHNIQUE: CT of the abdomen and pelvis was performed with the administration of intravenous contrast. Multiplanar reformatted images are provided for review. Automated exposure control, iterative reconstruction, and/or weight based adjustment of the mA/kV was utilized to reduce the radiation dose to as low as reasonably achievable. COMPARISON: CT abdomen pelvis December 05, 2021 HISTORY: ORDERING SYSTEM PROVIDED HISTORY: Reason for Exam: pain FINDINGS: Lower Chest: Lung bases are clear. Otherwise unchanged. Organs: Cholecystectomy. No focal liver lesions. The spleen, pancreas and adrenal glands are unremarkable. Kidneys enhance symmetrically. Left renal cyst. A few scattered punctate nonobstructing nephrolithiasis bilaterally. No hydronephrosis or hydroureter. GI/Bowel: No bowel obstruction, pneumoperitoneum, or ascites. Appendix is not definitively identified. Descending and sigmoid colon predominant diverticulosis without evidence of diverticulitis. Pelvis: Nearly decompressed bladder. Uterus unremarkable. Peritoneum/Retroperitoneum: Nonaneurysmal abdominal aorta with calcified and noncalcified plaque throughout its course without areas of surrounding inflammatory change or fluid collection. No enlarged lymph nodes. Partially imaged left superficial femoral artery stent. Bones/Soft Tissues: Degenerative change of the spine. IMPRESSION: No acute intra-abdominal findings. Interpreted by: Edil Fernández Preliminary Report By: Edil Fernández Electronically signed By Edil Fernández Dictated Date: 07/10/2022 5:13:38 PM Prelim Date: 07/10/2022 5:18:48 PM Sign Date: 07/10/2022 5:18:48 PM Ordering Provider: CARMEN ROSS [facility] 07-10-2022 Note ORIGINAL EXAMINATION: CT OF THE ABDOMEN AND PELVIS WITH CONTRAST 07/10/2022 5:12 pm TECHNIQUE: CT of the abdomen and pelvis was performed with the administration of intravenous contrast. Multiplanar reformatted images are provided for review. Automated exposure control, iterative reconstruction, and/or weight based adjustment of the mA/kV was utilized to reduce the radiation dose to as low as reasonably achievable. COMPARISON: CT abdomen pelvis December 05, 2021 HISTORY: ORDERING SYSTEM PROVIDED HISTORY: Reason for Exam: pain FINDINGS: Lower Chest: Lung bases are clear. Otherwise unchanged. Organs: Cholecystectomy. No focal liver lesions. The spleen, pancreas and adrenal glands are unremarkable. Kidneys enhance symmetrically. Left renal cyst. A few scattered punctate nonobstructing nephrolithiasis bilaterally. No hydronephrosis or hydroureter. GI/Bowel: No bowel obstruction, pneumoperitoneum, or ascites. Appendix is not definitively identified. Descending and sigmoid colon predominant diverticulosis without evidence of diverticulitis. Pelvis: Nearly decompressed bladder. Uterus unremarkable. Peritoneum/Retroperitoneum: Nonaneurysmal abdominal aorta with calcified and noncalcified plaque throughout its course without areas of surrounding inflammatory change or fluid collection. No enlarged lymph nodes. Partially imaged left superficial femoral artery stent. Bones/Soft Tissues: Degenerative change of the spine. IMPRESSION: No acute intra-abdominal findings. Interpreted by: Edil Fernández Preliminary Report By: Edil Fernández Electronically signed By Edil Fernández Dictated Date: 07/10/2022 5:13:38 PM Prelim Date: 07/10/2022 5:18:48 PM Sign Date: 07/10/2022 5:18:48 PM Ordering Provider: CARMEN ROSS [facility]05-2022 [facility] Patient Education 07/05/2022 13:10:51 Coronary Angiogram With Stent, Care After Coronary Angiogram With Stent, Care After This sheet gives you information about how to care for yourself after your procedure. Your health care provider may also give you more specific instructions. If you have problems or questions, contact your health care provider. What can I expect after the procedure? After your procedure, it is common to have: Bruising in the area where a small, thin tube (catheter) was inserted. This usually fades within 1 2 weeks. Blood collecting in the tissue (hematoma) that may be painful to the touch. It should usually decrease in size and tenderness within 1 2 weeks. Follow these instructions at home: Insertion area care Do not take baths, swim, or use a hot tub until your health care provider approves. You may shower 24 48 hours after the procedure or as directed by your health care provider. Follow instructions from your health care provider about how to take care of your incision. Make sure you: ?Wash your hands with soap and water before you change your bandage (dressing). If soap and water are not available, use hand associate project manager. ?Change your dressing as told by your health care provider. ?Leave stitches (sutures), skin glue, or adhesive strips in place. These skin closures may need to stay in place for 2 weeks or longer. If adhesive strip edges start to loosen and curl up, you may trim the loose edges. Do not remove adhesive strips completely unless your health care provider tells you to do that. Remove the bandage (dressing) and gently wash the catheter insertion site with plain soap and water. Pat the area dry with a clean towel. Do not rub the area, because that may cause bleeding. Do not apply powder or lotion to the incision area. Check your incision area every day for signs of infection. Check for: ?More redness, swelling, or pain. ?More fluid or blood. ?Warmth. ?Pus or a bad smell. Activity Do not drive for 24 hours if you were given a medicine to help you relax (sedative). Do not lift anything that is heavier than 10 lb (4.5 kg) for 5 days after your procedure or as directed by your health care provider. Ask your health care provider when it is okay for you: ?To return to work or school. ?To resume usual physical activities or sports. ?To resume sexual activity. Eating and drinking Eat a heart-healthy diet. This should include plenty of fresh fruits and vegetables. Avoid the following types of food: ?Food that is high in salt. ?Canned or highly processed food. ?Food that is high in saturated fat or sugar. ?Fried food. Limit alcohol intake to no more than 1 drink a day for non- women and 2 drinks a day for men. One drink equals 12 oz of beer, 5 oz of wine, or 1 oz of hard liquor. Lifestyle Do not use any products that contain nicotine or tobacco, such as cigarettes and e-cigarettes. If you need help quitting, ask your health care provider. Take steps to manage and control your weight. Get regular exercise. Manage your blood pressure. Manage other health problems, such as diabetes. General instructions Take uypl-wer-qlufdax and prescription medicines only as told by your health care provider. Blood thinners may be prescribed after your procedure to improve blood flow through the stent. If you need an MRI after your heart stent has been placed, be sure to tell the health care provider who orders the MRI that you have a heart stent. Keep all follow-up visits as directed by your health care provider. This is important. Contact a health care provider if: You have a fever. You have chills. You have increased bleeding from the catheter insertion area. Hold pressure on the area. Get help right away if: You develop chest pain or shortness of breath. You feel faint or you pass out. You have unusual pain at the catheter insertion area. You have redness, warmth, or swelling at the catheter insertion area. You have drainage (other than a small amount of blood on the dressing) from the catheter insertion area. The catheter insertion area is bleeding, and the bleeding does not stop after 30 minutes of holding steady pressure on the area. You develop bleeding from any other place, such as from your rectum. There may be bright red blood in your urine or stool, or it may appear as black, tarry stool. This information is not intended to replace advice given to you by your health care provider. Make sure you discuss any questions you have with your health care provider. Document Released: 11/09/2005 Document Revised: 04/04/2018 Document Reviewed: 01/17/2017 [employer] Patient Education 2020 [employer]ar. Follow Up Care 06/15/2022 10:48:11 With:ANNABEL STEINBERG DO Address: [address] [place] [phone]- [phone] When: Unknown Comments:Follow-up as scheduled [facility] 07-05-2022 Summary of episod e note Discharge Instructions Thank you for allowing [facility] to assist you with your healthcare needs. The following is important discharge information regarding your hospital visit. Your Care Team ANNABEL STEINBERG DO What to do next Scheduled Follow-Up Appointments Appointment Type When With Where Contact InformationDB Diabetic Individual Visit (AOH) 07/26/2022 09:00 AM EDT [facility] OV 07/26/2022 11:00 AM EDT ANNABEL STEINBERG DO [facility] [address] [phone] Follow Up Appointments Follow Up with ANNABEL STEINBERG DO When Why: Follow-up as scheduled Where: [address] [place] [phone] Allergies NSAIDs (Nausea) Ozempic (Nausea, Abdominal pain) Trulicity Pen (Abdominal pain, Headache, Nausea) simvastatin (Nausea) Medications Please ask your primary doctor or pharmacist before taking any other medication not listed, including over the counter drugs, herbal medications, vitamins and or supplements as they may interact with your home medications. What How Much When Why Instructions Last Dose Unchanged albuterol (albuterol MDI (90 mcg/ inh) CFC free inhalation aerosol) 2 puff(s) by inhalation Every 4 hours as needed for as needed for wheezing Viral upper respiratory infection Unchanged apixaban (Eliquis 5 mg oral tablet) 1 tab(s) by mouth Two (2) times a day Unchanged aspirin (aspirin 81 mg oral delayed release tablet) 1 tab(s) by mouth Two (2) times a day Unchanged dapagliflozin (Farxiga 10 mg oral tablet) 1 tab(s) by mouth Once a day Unchanged DME (Blood Glucose Test Machine) See instructions Use as directed BID to test blood sugar; Brand type per insurance or patient preference. Dx: E11.9 Unchanged DME (Blood Glucose Test Strips) See instructions Dispense glucose test strips, #200, UAD BID to test blood sugar; Dx: E11.9 Unchanged DME (Freestyle [place] 14 day sensor) See instructions Apply 1 sensor once every 2 weeks as directed. Remove old sensor prior to placing a new one. Rotate application sites Unchanged DME (Freestyle [place]) See instructions Use to check blood sugar as directed Unchanged DME (Pen needles 5 mm) See instructions Diabetes mellitus type 2 Dispense UltraFine pen needles 5mm, #100, use as directed daily to inject insulin. Diagnosis: E 11.9 Unchanged DULoxetine (DULoxetine 60 mg oral delayed release capsule) 2 cap by mouth Once a day Diabetic neuropathy Unchanged gabapentin (gabapentin 600 mg oral tablet) 2 tab(s) by mouth Three (3) times a day Sciatica Duration: 90 Days Unchanged hydrochlorothiazide-lisinopril (hydrochlorothiazide-lisinopril 12.5 mg-20 mg oral tablet) 1 tab(s) by mouth Once a day Duration: 90 Days Unchanged hydrOXYzine (hydrOXYzine hydrochloride 50 mg oral tablet) 1 tab(s) by mouth Four (4) times a day as needed for anxiety Unchanged insulin glargine (Lantus Solostar Pen 100 units/ mL 3 mL Pen) 30 unit(s) Subcutaneous Once a day Duration: 90 Days rotate injection sites Unchanged NIFEdipine (NIFEdipine (Eqv-Procardia XL) 60 mg oral tablet, extended release) See instructions TAKE 1 TABLET BY MOUTH EVERY DAY Unchanged omeprazole (omeprazole 20 mg oral delayed release capsule) 1 cap by mouth Once a day Unchanged ondansetron (ondansetron 4 mg oral tablet, disintegrating) 1 tab(s) by mouth Once a day Unchanged pentoxifylline (pentoxifylline 400 mg oral tablet, extended release) 1 tab(s) by mouth Three (3) times a day Please take this list to your next doctor s visit. Bring all medications you take, including over the counter medications, herbals and other supplements with you to your doctor s visit. Patients and families are reminded to discard old lists and to update any records with all medication providers or retail pharmacies. Education Materials Coronary Angiogram With Stent, Care After This sheet gives you information about how to care for yourself after your procedure. Your health care provider may also give you more specific instructions. If you have problems or questions, contact your health care provider. What can I expect after the procedure? After your procedure, it is common to have: Bruising in the area where a small, thin tube (catheter) was inserted. This usually fades within 1 2 weeks. Blood collecting in the tissue (hematoma) that may be painful to the touch. It should usually decrease in size and tenderness within 1 2 weeks. Follow these instructions at home: Insertion area care Do not take baths, swim, or use a hot tub until your health care provider approves. You may shower 24 48 hours after the procedure or as directed by your health care provider. Follow instructions from your health care provider about how to take care of your incision. Make sure you: ? Wash your hands with soap and water before you change your bandage (dressing). If soap and water are not available, use hand associate project manager. ? Change your dressing as told by your health care provider. ? Leave stitches (sutures), skin glue, or adhesive strips in place. These skin closures may need to stay in place for 2 weeks or longer. If adhesive strip edges start to loosen and curl up, you may trim the loose edges. Do not remove adhesive strips completely unless your health care provider tells you to do that. Remove the bandage (dressing) and gently wash the catheter insertion site with plain soap and water. Pat the area dry with a clean towel. Do not rub the area, because that may cause bleeding. Do not apply powder or lotion to the incision area. Check your incision area every day for signs of infection. Check for: ? More redness, swelling, or pain. ? More fluid or blood. ? Warmth. ? Pus or a bad smell. Activity Do not drive for 24 hours if you were given a medicine to help you relax (sedative). Do not lift anything that is heavier than 10 lb (4.5 kg) for 5 days after your procedure or as directed by your health care provider. Ask your health care provider when it is okay for you: ? To return to work or school. ? To resume usual physical activities or sports. ? To resume sexual activity. Eating and drinking Eat a heart-healthy diet. This should include plenty of fresh fruits and vegetables. Avoid the following types of food: ? Food that is high in salt. ? Canned or highly processed food. ? Food that is high in saturated fat or sugar. ? Fried food. Limit alcohol intake to no more than 1 drink a day for non- women and 2 drinks a day for men. One drink equals 12 oz of beer, 5 oz of wine, or 1 oz of hard liquor. Lifestyle Do not use any products that contain nicotine or tobacco, such as cigarettes and e-cigarettes. If you need help quitting, ask your health care provider. Take steps to manage and control your weight. Get regular exercise. Manage your blood pressure. Manage other health problems, such as diabetes. General instructions Take phdg-rus-cgecixp and prescription medicines only as told by your health care provider. Blood thinners may be prescribed after your procedure to improve blood flow through the stent. If you need an MRI after your heart stent has been placed, be sure to tell the health care provider who orders the MRI that you have a heart stent. Keep all follow-up visits as directed by your health care provider. This is important. Contact a health care provider if: You have a fever. You have chills. You have increased bleeding from the catheter insertion area. Hold pressure on the area. Get help right away if: You develop chest pain or shortness of breath. You feel faint or you pass out. You have unusual pain at the catheter insertion area. You have redness, warmth, or swelling at the catheter insertion area. You have drainage (other than a small amount of blood on the dressing) from the catheter insertion area. The catheter insertion area is bleeding, and the bleeding does not stop after 30 minutes of holding steady pressure on the area. You develop bleeding from any other place, such as from your rectum. There may be bright red blood in your urine or stool, or it may appear as black, tarry stool. This information is not intended to replace advice given to you by your health care provider. Make sure you discuss any questions you have with your health care provider. Document Released: 11/09/2005 Document Revised: 04/04/2018 Document Reviewed: 01/17/2017 [employer] Patient Education 2020 [employer] Additional Information VACCINATE! IT SAVES LIVES! Members of the community who have not yet received the COVID-19 vaccine and would like to receive it can visit one of [facility] vaccine clinics. There are many vaccine clinic locations within the [facility]. For locations and available times, please visit https://gettheshot.coronavirus.[place].gov/. It is important to note that some COVID mobile vaccine clinics are held outdoors and may be canceled in rainy or stormy conditions. To learn more about pediatric vaccinations (ages 5-11), we invite you to visit the [facility] webpage. [email or web address]/pa [email or web address] oopc-Ovtpl-[email or web address] To learn more about the COVID-19 vaccine, we invite you to visit the CDC website for a list of frequently asked questions. https://www.cdc.gov/coronavirus/2 019-ncov/vaccines/faq.html [facility] Patient Portal Access Instructions: Stay connected with your healthcare team and access your personal medical information anytime with the [facility] Patient Portal.If you would like a full copy of your medical records, please contact the [facility] Medical Records Department, Saturday through Saturday between 8a.m. and 4:30p.m. Please follow the directions below to access the portal: 1.Access the email account you provided upon registration to the hospital.2.Look for an invitation email from [facility].3.Open the email and access the invitation link: Accept Invitation to [facility].Fill in the required fuentes to create your account. Sign into www.[employer] with your username and password that you created in the above steps to stay up to date. You can then view a summary of results, a summary of your visits, and the ability to download your summaries to your computer or send the information securely to a physician. Remember that your healthcare information is confidential, so carefully consider who you will allow to register on the [facility] Patient Portal for access to your information. You can also access the [facility] Patient Portal on the [employer] radha. Simply click on Health Records under Health Data and then click on the [employer] logo. HOW TO SAFELY DISPOSE OF PRESCRIPTION MEDICATIONS Please use one of the following methods to safely dispose of your unused medications. 1.Use a drug disposal kit: the drug disposal pouch allows you to safely discard your old and unused drugs. Ask your nurse to give you one when you are discharged.2.Visit a local take-back location: Many local pharmacies and police departments have programs that collect old and unwanted prescription drugs. Call your local pharmacy or go to http://[employer].The [employer] website/9W2Ot4f to find one close to you.3.Make use of household items: Use cat litter or old coffee grounds to dispose medications if other options are not available. Mix your drugs with these household products, seal them in an airtight container and throw it into the garbage. Call [facility]: [phone] to be sure your drugs can be disposed of in this way. Some medicines may require a different approach.4.Never flush your medications down the toilet. IF YOU HAVE BEEN PRESCRIBED AN OPIOID FOR PAIN If you have been prescribed an opioid (such as hydrocodone, oxycodone or morphine), it is critical to understand the possible side effects and risks of opioid pain medications. Even when taken as directed, opioids can have several side effects including: Tolerance, meaning you might need to take more of a medication for the same pain relief. Nausea, vomiting and/or constipation. Sleepiness, dizziness, dry mouth, confusion, depression or itching. Physical dependence, meaning you have withdrawal symptoms when a medication is stopped, can develop within a few days. KNOW YOUR RESPONSIBILITIES It is important to know exactly how much and how often to take the opioid pain medications you are prescribed. Never take opioids in higher amounts or more often than prescribed. Do not combine opioids with alcohol or other drugs that cause drowsiness, such as benzodiazepines, also known as benzos, including diazepam and alprazolam, muscle relaxants or sleep aids. Never sell or share prescription opioids. This is illegal. Store opioids in a secure place and out of reach of others (including children, family, friends and visitors). The last page of this document has been signed and retained as a CHART COPY. Signatures Patient Education Materials Coronary Angiogram With Stent, Care After Medication Leaflets My discharge plan and instructions have been reviewed and explained to me and ILA EUNICE M understand my current condition and have read and understand these discharge instructions. I have received a written copy of the plan/instructions. If I have questions, I am aware that I should contact my doctor. Patient/Supervisor Prop Making Signature: Date/Time: Relationship to Patient: ____ Witness Name/Signature: Date/Time: [facility] 07-05-2022 Note ORIGINAL Images acquired, not reported on this accession number. [facility] 07-05-2022 Note ORIGINAL Images acquired, not reported on this accession number. [facility] 05-07-2022 Hospital Discharg e instructions Patient Education 05/07/2022 15:35:18 Preventing Falls in the Home Preventing Falls in the Home An adult or child can fall for many reasons. If you are an older adult, you may fall because your reaction time slows down. Your muscles and joints may get stiff, weak, or less flexible because of illness, medicines, or a physical condition. These things can also make a child more likely to fall or be injured in a fall. Other health problems that make falls more likely include: Arthritis Dizziness or lightheadedness when you get out of bed (orthostatic hypotension) History of a stroke Dizziness Anemia Certain medicines taken for mental illness or to control blood pressure. Problems with balance or gait Bladder or urinary problems History of falls with or without an injury Changes in vision (vision impairment) Changes in thinking skills and memory (cognitive impairment) Injuries from a fall can include broken bones, dislocated joints, internal bleeding and cuts. When these injuries are serious enough, they can make it impossible for you or a child who is injured in a fall to live on his or her ownhome. Prevention tips To help prevent falls and fall-related injuries, follow the tips below. Floors Make floors safer by doing the following: Put nonskid pads under area rugs. Remove throw rugs. Replace worn floor coverings. Tack carpets firmly to each step on carpeted stairs. Put nonskid strips on the edges of uncarpeted stairs. Keep floors and stairs free of clutter and cords. Arrange furniture so there are clear pathways. Clean up any spills right away. Wear shoes that fit. Bathrooms Make bathrooms safer by doing the following: Install grab bars in the tub or shower. Apply nonskid strips or put a nonskid rubber mat in the tub or shower. Sit on a bath chair to bathe. Use bathmats with nonskid backing. Lighting and the environment Improve lighting in your home by doing the following: Keep a flashlight in each room. Or put a lamp next to the bed within easy reach. Put nightlights in the bedrooms, hallways, kitchen, and bathrooms. Make sure all stairways have good lighting. Take your time when going up and down stairs. Put handrails on both sides of stairs and in walkways for more support. To prevent injury to your wrist or arm, don t use handrails to pull yourself up. Install grab bars to pull yourself up. Move or rearrange items that you use often. This will make them easier to find or reach. Look at your home to find any safety hazards. Especially look at doorways, walkways, and the driveway. Remove or repair any safety problems that you find. 2883-3600 [employer]. [address] [place] [address]. All rights reserved. This information is not intended as a substitute for professional medical care. Always follow your healthcare professional's instructions. 05/07/2022 15:35:10 Neuropathy, Peripheral Peripheral Neuropathy Peripheral neuropathy is the result of damage to the peripheral nerves. It usually affects the arms or legs, and causes a change in physical feeling. Sometimes it causes weakness in the muscles. You may feel tingling, numbness or shooting pains. Symptoms may be more common at night. Skin may be extra sensitive to light touch or temperature changes. Neuropathy may be caused by a complication of a chronic disease such as diabetes, virus or bacterial infections, or physical injury. A ruptured disk with pressure on the spinal nerve may also lead to the problem. Certain vitamin deficiencies may also lead to it. It may also be caused by exposure to certain drugs or chemicals. Home care Tell the healthcare provider about all medicines you take. This includes prescription and uezv-yut-qqourit medicines, vitamins, and herbs. Ask if any of the medicines may be causing your problems. Don't make any changes to prescription medicines without talking to your healthcare provider first. You may be prescribed medicines to help relieve the tingling feeling or for pain. Take all medicines as directed. A numb hand or foot may be more prone to injury. To help protect it: oAlways use oven mitts. oTest water with an unaffected hand or foot. oUse caution when trimming nails. File sharp areas. oWear shoes that fit well to avoid pressure points, blisters, and ulcers. oInspect your hands and feet carefully (including the soles of your feet and between your toes) at least once a week. If you see red areas, sores, or other problems, tell your healthcare provider. Follow-up care Follow up with your doctor or as advised by our staff. You may need further testing or evaluation. When to seek medical advice Call your healthcare provider right away if any of the following occur: Redness, swelling, cracking, or ulcer on any numb area, especially the feet New symptoms of numbness or muscle weakness numbness Loss of bowel or bladder control Slurred speech, confusion, or trouble speaking, walking, or seeing [phone] [employer]. [address] [place] [address]. All rights reserved. This information is not intended as a substitute for professional medical care. Always follow your healthcare professional's instructions. 05/07/2022 15:35:03 Diabetes with High Blood Sugar Diabetes with High Blood Sugar You have been treated for high blood sugar (hyperglycemia). This may be because of an infection or other illness. Or it may be from eating too many sweets or starches. Or it may be from not taking enough insulin or other diabetes medicine. Home care Check your blood sugar level at least 2 times a day. Write it down the results. Do this before breakfast and before dinner. If you take insulin, also write down your routine insulin dose. Note any other doses you needed based on your sliding scale or as advised by your healthcare provider. Do this for the next 3 to 5 days. High blood sugar may cause symptoms that you can learn to spot. These include: Peeing often Thirst Headache Breath that smells fruity Nausea or vomiting Belly pain If you have symptoms of high blood sugar, use a blood or urine test to find out what your blood sugar level is. If it is above your usual range, use the sliding scale regular insulin dose from your healthcare provider. Call your provider for advice if you were not given a range for your insulin dose. If your blood sugar is over 240 mg/dL, check your urine for ketones. Follow-up care Follow up with your healthcare provider, or as advised. You may need to meet with your provider in the next week. You will likely look at your blood sugar records together. You may need to change your dose of insulin or other diabetes medicine. When to seek medical advice Call your healthcare provider right away if these occur: Symptoms of high blood sugar that don't get better with the treatment your provider advised. This is especially true if you also have ketones in your urine. Blood sugar over 300 mg/dl. If you can t reach your healthcare provider, go to a hospital emergency room or urgent care center. Call 911 Call 911 if you have any of the following: Confusion Dizziness, lightheadedness, or loss of consciousness Shortness of breath Chest pain Weakness of an arm, leg, or one side of the face Sudden trouble with speech or vision [phone] [employer]. [address] [place] [address]. All rights reserved. This information is not intended as a substitute for professional medical care. Always follow your healthcare professional's instructions. Follow Up Care 05/07/2022 10:46:16 With:ANNABEL STEINBERG DO Address: [address] [place] [phone] When:2-4 days [facility] 05-07-2022 Note Discharge Instructions Thank you for allowing [facility] to assist you with your healthcare needs. The following is important discharge information regarding your hospital visit. Diagnosis from Today's Visit Multiple falls What to Do Next Instructions from Your Care Team No qualifying data available. Post Acute Orders No qualifying data available. You Need to Schedule the Following Appointments Follow Up with ANNABEL STEINBERG DO When Within 2-4 days Where: [address] [place] [phone] Allergies NSAIDs (Nausea) Ozempic (Nausea, Abdominal pain) Trulicity Pen (Abdominal pain, Headache, Nausea) simvastatin (Nausea) Medications Please ask your primary doctor or pharmacist before taking any other medication not listed, including over the counter drugs, herbal medications, vitamins and or supplements as they may interact with your home medications. What How Much When Why Instructions Last Dose Unchanged albuterol (albuterol MDI (90 mcg/ inh) CFC free inhalation aerosol) 2 puff(s) by inhalation Every 4 hours as needed for as needed for wheezing Viral upper respiratory infection Unchanged apixaban (Eliquis 5 mg oral tablet) 1 tab(s) by mouth Two (2) times a day Unchanged aspirin (aspirin 81 mg oral delayed release tablet) 1 tab(s) by mouth Two (2) times a day Unchanged buPROPion (buPROPion 300 mg/ 24 hours (XL) oral tablet, extended release) 1 tab(s) by mouth Once a day Unchanged dapagliflozin (Farxiga 10 mg oral tablet) 1 tab(s) by mouth Once a day Unchanged DME (Blood Glucose Test Machine) See instructions Use as directed BID to test blood sugar; Brand type per insurance or patient preference. Dx: E11.9 Unchanged DME (Blood Glucose Test Strips) See instructions Dispense glucose test strips, #200, UAD BID to test blood sugar; Dx: E11.9 Unchanged DME ([employer] [place] 14 day sensor) See instructions Apply 1 sensor once every 2 weeks as directed. Remove old sensor prior to placing a new one. Rotate application sites Unchanged DME ([employer] [place]) See instructions Use to check blood sugar as directed Unchanged DME (Pen needles 5 mm) See instructions Diabetes mellitus type 2 Dispense UltraFine pen needles 5mm, #100, use as directed daily to inject insulin. Diagnosis: E 11.9 Unchanged FLUoxetine (FLUoxetine 40 mg oral capsule) 1 cap by mouth Once a day Unchanged gabapentin (gabapentin 600 mg oral tablet) 2 tab(s) by mouth Three (3) times a day Sciatica Duration: 90 Days Unchanged hydrochlorothiazide-lisinopril (hydrochlorothiazide-lisinopril 12.5 mg-20 mg oral tablet) 1 tab(s) by mouth Once a day Duration: 90 Days Unchanged hydrOXYzine (hydrOXYzine hydrochloride 50 mg oral tablet) 1 tab(s) by mouth Four (4) times a day as needed for anxiety Unchanged insulin glargine (Lantus Solostar Pen 100 units/ mL 3 mL Pen) 20 unit(s) Subcutaneous Once a day Duration: 90 Days rotate injection sites Unchanged metFORMIN (metFORMIN 500 mg oral tablet EXTENDED RELEASE) 1 tab(s) by mouth Two (2) times a day Duration: 90 Days Unchanged NIFEdipine (NIFEdipine (Eqv-Procardia XL) 60 mg oral tablet, extended release) See instructions TAKE 1 TABLET BY MOUTH EVERY DAY Unchanged omeprazole (omeprazole 20 mg oral delayed release capsule) 1 cap by mouth Once a day Unchanged ondansetron (ondansetron 4 mg oral tablet, disintegrating) 1 tab(s) by mouth Once a day Unchanged pentoxifylline (pentoxifylline 400 mg oral tablet, extended release) 1 tab(s) by mouth Three (3) times a day Please take this list to your next doctor s visit. Bring all medications you take, including over the counter medications, herbals and other supplements with you to your doctor s visit. Patients and families are reminded to discard old lists and to update any records with all medication providers or retail pharmacies. Education Materials Preventing Falls in the Home An adult or child can fall for many reasons. If you are an older adult, you may fall because your reaction time slows down. Your muscles and joints may get stiff, weak, or less flexible because of illness, medicines, or a physical condition. These things can also make a child more likely to fall or be injured in a fall. Other health problems that make falls more likely include: Arthritis Dizziness or lightheadedness when you get out of bed (orthostatic hypotension) History of a stroke Dizziness Anemia Certain medicines taken for mental illness or to control blood pressure. Problems with balance or gait Bladder or urinary problems History of falls with or without an injury Changes in vision (vision impairment) Changes in thinking skills and memory (cognitive impairment) Injuries from a fall can include broken bones, dislocated joints, internal bleeding and cuts. When these injuries are serious enough, they can make it impossible for you or a child who is injured in a fall to live on his or her ownhome. Prevention tips To help prevent falls and fall-related injuries, follow the tips below. Floors Make floors safer by doing the following: Put nonskid pads under area rugs. Remove throw rugs. Replace worn floor coverings. Tack carpets firmly to each step on carpeted stairs. Put nonskid strips on the edges of uncarpeted stairs. Keep floors and stairs free of clutter and cords. Arrange furniture so there are clear pathways. Clean up any spills right away. Wear shoes that fit. Bathrooms Make bathrooms safer by doing the following: Install grab bars in the tub or shower. Apply nonskid strips or put a nonskid rubber mat in the tub or shower. Sit on a bath chair to bathe. Use bathmats with nonskid backing. Lighting and the environment Improve lighting in your home by doing the following: Keep a flashlight in each room. Or put a lamp next to the bed within easy reach. Put nightlights in the bedrooms, hallways, kitchen, and bathrooms. Make sure all stairways have good lighting. Take your time when going up and down stairs. Put handrails on both sides of stairs and in walkways for more support. To prevent injury to your wrist or arm, don t use handrails to pull yourself up. Install grab bars to pull yourself up. Move or rearrange items that you use often. This will make them easier to find or reach. Look at your home to find any safety hazards. Especially look at doorways, walkways, and the driveway. Remove or repair any safety problems that you find. 7971-7985 [employer]. [address] [place], [place] [id number]. All rights reserved. This information is not intended as a substitute for professional medical care. Always follow your healthcare professional's instructions. Peripheral Neuropathy Peripheral neuropathy is the result of damage to the peripheral nerves. It usually affects the arms or legs, and causes a change in physical feeling. Sometimes it causes weakness in the muscles. You may feel tingling, numbness or shooting pains. Symptoms may be more common at night. Skin may be extra sensitive to light touch or temperature changes. Neuropathy may be caused by a complication of a chronic disease such as diabetes, virus or bacterial infections, or physical injury. A ruptured disk with pressure on the spinal nerve may also lead to the problem. Certain vitamin deficiencies may also lead to it. It may also be caused by exposure to certain drugs or chemicals. Home care Tell the healthcare provider about all medicines you take. This includes prescription and wspe-vnl-ltdcosr medicines, vitamins, and herbs. Ask if any of the medicines may be causing your problems. Don't make any changes to prescription medicines without talking to your healthcare provider first. You may be prescribed medicines to help relieve the tingling feeling or for pain. Take all medicines as directed. A numb hand or foot may be more prone to injury. To help protect it: oAlways use oven mitts. oTest water with an unaffected hand or foot. oUse caution when trimming nails. File sharp areas. oWear shoes that fit well to avoid pressure points, blisters, and ulcers. oInspect your hands and feet carefully (including the soles of your feet and between your toes) at least once a week. If you see red areas, sores, or other problems, tell your healthcare provider. Follow-up care Follow up with your doctor or as advised by our staff. You may need further testing or evaluation. When to seek medical advice Call your healthcare provider right away if any of the following occur: Redness, swelling, cracking, or ulcer on any numb area, especially the feet New symptoms of numbness or muscle weakness numbness Loss of bowel or bladder control Slurred speech, confusion, or trouble speaking, walking, or seeing [id number] [employer]. [address] [place] [address]. All rights reserved. This information is not intended as a substitute for professional medical care. Always follow your healthcare professional's instructions. Diabetes with High Blood Sugar You have been treated for high blood sugar (hyperglycemia). This may be because of an infection or other illness. Or it may be from eating too many sweets or starches. Or it may be from not taking enough insulin or other diabetes medicine. Home care Check your blood sugar level at least 2 times a day. Write it down the results. Do this before breakfast and before dinner. If you take insulin, also write down your routine insulin dose. Note any other doses you needed based on your sliding scale or as advised by your healthcare provider. Do this for the next 3 to 5 days. High blood sugar may cause symptoms that you can learn to spot. These include: Peeing often Thirst Headache Breath that smells fruity Nausea or vomiting Belly pain If you have symptoms of high blood sugar, use a blood or urine test to find out what your blood sugar level is. If it is above your usual range, use the sliding scale regular insulin dose from your healthcare provider. Call your provider for advice if you were not given a range for your insulin dose. If your blood sugar is over 240 mg/dL, check your urine for ketones. Follow-up care Follow up with your healthcare provider, or as advised. You may need to meet with your provider in the next week. You will likely look at your blood sugar records together. You may need to change your dose of insulin or other diabetes medicine. When to seek medical advice Call your healthcare provider right away if these occur: Symptoms of high blood sugar that don't get better with the treatment your provider advised. This is especially true if you also have ketones in your urine. Blood sugar over 300 mg/dl. If you can t reach your healthcare provider, go to a hospital emergency room or urgent care center. Call 911 Call 911 if you have any of the following: Confusion Dizziness, lightheadedness, or loss of consciousness Shortness of breath Chest pain Weakness of an arm, leg, or one side of the face Sudden trouble with speech or vision [id number] [employer]. [address] [place] [address]. All rights reserved. This information is not intended as a substitute for professional medical care. Always follow your healthcare professional's instructions. Additional Information VACCINATE! IT SAVES LIVES! Members of the community who have not yet received the COVID-19 vaccine and would like to receive it can visit one of [facility] vaccine clinics. There are many vaccine clinic locations within the [facility]. For locations and available times, please visit [email or web address]. It is important to note that some COVID mobile vaccine clinics are held outdoors and may be canceled in rainy or stormy conditions. To learn more about pediatric vaccinations (ages 5-11), we invite you to visit the [facility] webpage. [email or web address] To learn more about the COVID-19 vaccine, we invite you to visit the [employer] website for a list of frequently asked questions. [email or web address] [employer] Patient Portal Access Instructions: Stay connected with your healthcare team and access your personal medical information anytime with the [facility] Patient Portal. If you would like a full copy of your medical records please contact the [facility] Medical Records Department Saturday through Saturday between 8a.m. and 4:30p.m. Please follow the directions below to access the portal: 1.Access the email account you provided upon [facility] the [facility].2.Look for an invitation email from [facility].3.Open the email and access the invitation link: Accept Invitation to [facility]4.Fill in the required fuentes to create your account. Sign into www.[employer] with your username and password that you created in the above steps to stay up to date. You can then view a summary of results, a summary of your visits, and the ability to download your summaries to your computer or send the information securely to a physician. Remember that your healthcare information is confidential, so carefully consider who you will allow to register on the [facility] Patient Portal for access to your information. You can also access the [facility] Patient Portal on the [employer] radha. Simply click on Health Records under Health Data and then click on the [employer] logo. HOW TO SAFELY DISPOSE OF PRESCRIPTION MEDICATIONS Please use one of the following methods to safely dispose of your unused medications. 1.Use a drug disposal kit: the drug disposal pouch allows you to safely discard your old and unused drugs. Ask your nurse to give you one when you are discharged.2.Visit a local take-back location: Many local pharmacies and police departments have programs that collect old and unwanted prescription drugs. Call your local pharmacy or go to http://bit.ly/0N8Dd0f to find one close to you.3.Make use of household items: Use cat litter or old coffee grounds to dispose medications if other options are not available. Mix your drugs with these household products, seal them in an airtight container and throw it into the garbage. Call [facility]: [phone] to be sure your drugs can be disposed of in this way. Some medicines may require a different approach.4.Never flush your medications down the toilet. IF YOU HAVE BEEN PRESCRIBED AN OPIOIDS FOR PAIN If you have been prescribed an opioid (such as hydrocodone, oxycodone or morphine), it is critical to understand the possible side effects and risks of opioid pain medications. Even when taken as directed, opioids can have several side effects including: Tolerance, meaning you might need to take more of a medication for the same pain relief. Nausea, vomiting and/or constipation. Sleepiness, dizziness, dry mouth, confusion, depression or itching. Physical dependence, meaning you have withdrawal symptoms when a medication is stopped ? this can develop within a few days. KNOW YOUR RESPONSIBILITIES It is important to know exactly how much and how often to take the opioid pain medications you are prescribed. Never take opioids in higher amounts or more often than prescribed. Do not combine opioids with alcohol or other drugs that cause drowsiness, such as benzodiazepines, also known as benzos, including diazepam and alprazolam, muscle relaxants or sleep aids. Never sell or share prescription opioids. This is illegal. Store opioids in a secure place and out of reach of others (including children, family, friends and visitors). The last page(s) of this document has been signed and retained as a CHART COPY Signatures Patient Education Materials Preventing Falls in the Home Neuropathy, Peripheral Diabetes with High Blood Sugar Medication Leaflets My discharge plan and instructions have been reviewed and explained to me and ILA EUNICE M understand my current condition and have read and understand these discharge instructions. I have received a written copy of the plan/instructions. If I have questions, I am aware that I should contact my doctor. Patient/Supervisor Prop Making Signature: Date/Time: Relationship to Patient: ____ Witness Name/Signature: Date/Time: [facility] 05-07-2022 SARS-CoV-2 (COVID-19) RNA MARTÍN+probe Ql (Nph) Negative *NA* (05/07/22 11:33 AM) AO Auto Urine SS 12-06-2021 Hospital Discharg e instructions Patient Education 12/06/2021 15:23:46 Dehydration, Adult, Huwc-mv-Ilgc Dehydration, Adult Dehydration is when there is not enough fluid or water in your body. This happens when you lose more fluids than you take in. Dehydration can range from mild to very bad. It should be treated right away to keep it from getting very bad. Symptoms of mild dehydration may include: Thirst. Dry lips. Slightly dry mouth. Dry, warm skin. Dizziness. Symptoms of moderate dehydration may include: Very dry mouth. Muscle cramps. Dark pee (urine). Pee may be the color of tea. Your body making less pee. Your eyes making fewer tears. Heartbeat that is uneven or faster than normal (palpitations). Headache. Light-headedness, especially when you stand up from sitting. Fainting (syncope). Symptoms of very bad dehydration may include: Changes in skin, such as: ?Cold and clammy skin. ?Blotchy (mottled) or pale skin. ?Skin that does not quickly return to normal after being lightly pinched and let go (poor skin turgor). Changes in body fluids, such as: ?Feeling very thirsty. ?Your eyes making fewer tears. ?Not sweating when body temperature is high, such as in hot weather. ?Your body making very little pee. Changes in vital signs, such as: ?Weak pulse. ?Pulse that is more than 100 beats a minute when you are sitting still. ?Fast breathing. ?Low blood pressure. Other changes, such as: ?Sunken eyes. ?Cold hands and feet. ?Confusion. ?Lack of energy (lethargy). ?Trouble waking up from sleep. ?Short-term weight loss. ?Unconsciousness. Follow these instructions at home: If told by your doctor, drink an ORS: ?Make an ORS by using instructions on the package. ?Start by drinking small amounts, about cup (120 mL) every 5 10 minutes. ?Slowly drink more until you have had the amount that your doctor said to have. Drink enough clear fluid to keep your pee clear or pale yellow. If you were told to drink an ORS, finish the ORS first, then start slowly drinking clear fluids. Drink fluids such as: ?Water. Do not drink only water by itself. Doing that can make the salt (sodium) level in your body get too low (hyponatremia). ?Ice chips. ?Fruit juice that you have added water to (diluted). ?Low-calorie sports drinks. Avoid: ?Alcohol. ?Drinks that have a lot of sugar. These include high-calorie sports drinks, fruit juice that does not have water added, and soda. ?Caffeine. ?Foods that are greasy or have a lot of fat or sugar. Take bxra-yqi-wstwjbo and prescription medicines only as told by your doctor. Do not take salt tablets. Doing that can make the salt level in your body get too high (hypernatremia). Eat foods that have minerals (electrolytes). Examples include bananas, oranges, potatoes, tomatoes, and spinach. Keep all follow-up visits as told by your doctor. This is important. Contact a doctor if: You have belly (abdominal) pain that: ?Gets worse. ?Stays in one area (localizes). You have a rash. You have a stiff neck. You get angry or annoyed more easily than normal (irritability). You are more sleepy than normal. You have a harder time waking up than normal. You feel: ?Weak. ?Dizzy. ?Very thirsty. You have peed (urinated) only a small amount of very dark pee during 6 8 hours. Get help right away if: You have symptoms of very bad dehydration. You cannot drink fluids without throwing up (vomiting). Your symptoms get worse with treatment. You have a fever. You have a very bad headache. You are throwing up or having watery poop (diarrhea) and it: ?Gets worse. ?Does not go away. You have blood or something green (bile) in your throw-up. You have blood in your poop (stool). This may cause poop to look black and tarry. You have not peed in 6 8 hours. You pass out (faint). Your heart rate when you are sitting still is more than 100 beats a minute. You have trouble breathing. This information is not intended to replace advice given to you by your health care provider. Make sure you discuss any questions you have with your health care provider. Document Released: 02/16/2010 Document Revised: 04/04/2018 Document Reviewed: 06/15/2016 [employer] Patient Education 2020 [employer]. Follow Up Care 12/05/2021 15:57:14 With:ANNABEL STEINBERG DO Address: [address] [place] [address] [place] [address]- [phone] When:12/19/2021 11:30:00 Comments:This appointment will serve as your post-hospital follow-up appointment. [facility] 12-06-2021 Note Date of Service 12.06.21 Chief Complaint pt sts weakness and nausea and anorexia x 2 weeks since starting ozempic. sts stopped ozempic but still is weak nauseated with stomach cramping annd loose stools History of Present Illness This is a 61-year-old female with a history of diabetes, anxiety, CHF, fibromyalgia, GERD, hypertension, hyperlipidemia and PVD, IBS with diarrhea who presented to the hospital with nausea and anorexia for 2 weeks also diarrhea and dizziness. This was felt to be related to Ozempic which she recently started taking. She also had the same reaction to Trulicity in the past. She was prescribed meclizine as an outpatient for her dizziness a few days prior to admission which helped somewhat with her dizziness but she was concerned about her continued nausea, decreased oral intake and weakness. She was found to have acute kidney injury with creatinine 1.72, baseline creatinine 0.97. Magnesium was low at 1.0. Patient was brought in, given IV hydration and magnesium replacement, creatinine is improved today to 1.23. She did not eat much for breakfast this morning but is not currently having any nausea. Continues to have some loose stools but states this is chronic for her. She has no abdominal pain. Denies chest pain or shortness of breath. Patient had a CT of the abdomen and pelvis done in the ER that showed no acute intra-abdominal abnormalities, hepatic steatosis, right retroareolar soft tissue irregularity partially imaged correlate with mammography. Review of Systems Review of Systems: Reviewed in detail, including general health, HEENT, cardiovascular, respiratory, gastrointestinal, genitourinary, endocrine, musculoskeletal, neurologic, vascular, skin, and psychiatric. All are negative except for those listed in the History of Present Illness Physical Exam Vitals and Measurements T: 36.6 C (Oral) TMIN: 36.4 C (Oral) TMAX: 36.9 C (Oral) HR: 82 RR: 18 BP: 119/65 BP: 117/79(Sitting) BP: 124/84(Standing) BP: 113/73(Supine) SpO2: 97% HT: 170 cm WT: 106 kg BMI: 36.68 Weight Dosing Weight: 106 kg (12/05/21) Dosing Weight: 105 kg (12/05/21) Vitals Signs(Last 24 hrs)__ Last Charted Minimum Maximum Temp 36.6(DEC 06 15:25) 36.6(DEC 06 15:25) 36.7(DEC 05 20:10) Heart Rate 72(DEC 06 04:10) 72(DEC 06 04:10) 72(DEC 06 04:10) Resp Rate 18(DEC 06 15:25) 14(DEC 05 17:02) 20(DEC 06 04:10) SBP 119(DEC 06 15:25) L 86(DEC 05 18:52) 124(DEC 06 11:02) DBP 65(DEC 06 15:25) L 52(DEC 06 04:10) 84(DEC 06 11:02) Physical Exam General: No acute distress. Alert and Appropriate Skin: No rash. Warm, Dry, Intact Lungs: Bilaterally clear breath sounds with no crepitation or wheeze. Cardiovascular: Heart is regular rhythm, S1S2, No extra-audible heart tones Abdomen: Abdomen is soft, nontender. Bowel sounds positive all four quadrants. No hepatosplenomegaly noted. Extremities: No clubbing, cyanosis or edema. Neurological: The patient is awake, oriented to person, place and time. Following simple commands, moving all extremities. Lab Results 12/06 06:04 WBC: 7.5 Hgb: 10.6 L Hct: 31.4 L Platelet: 358 Neutrophil %: 41.6 Glucose Level: 193 H Sodium Level: 138 Potassium Level: 4.0 BUN: 28 H Creatinine Lvl (s): 1.23 H 12/05 16:20 WBC: 13.0 H Hgb: 12.5 Hct: 37.8 Platelet: 436 H Neutrophil %: 65.5 Glucose Level: 325 H Sodium Level: 135 L Potassium Level: 3.9 BUN: 40 H Creatinine Lvl (s): 1.72 H Assessment/Plan 1. Nausea 2. Diarrhea 3. FELIX (acute kidney injury) 4. Depression with anxiety 5. Diabetes mellitus type 2 6. CONGESTIVE HEART FAILURE, UNSPECIFIED 7. Fibromyalgia 8. GERD - Gastro-esophageal reflux disease 9. High blood pressure 10. Mixed hyperlipidemia 11. PVD (peripheral vascular disease) 12. IBS (irritable bowel syndrome) Patient was treated here with IV fluids, Zofran, magnesium bolus. Feeling a bit better at this time but has not had much to eat for breakfast. Her acute kidney injury is improved down to 1.23. Her blood sugars are well controlled currently. Ozempic has been discontinued and added to her allergy list. Orthostatic vital signs were checked for her complaint of dizziness and are found to be negative, patient reports her dizziness is improved from previous. Notified the patient of the findings on her CT including fatty liver as well as the breast abnormality, patient states she is not up-to-date on her mammogram, states she is going to follow-up with her primary care provider to get an order to get one done. Her home medication of HCTZ lisinopril is currently on hold. Blood pressure stable. Will reevaluate how she is feeling later in the day, possible discharge. Discussed with Dr. Olson Orders: acetaminophen, Start: 12/05/21 20:26:00 EDT, Dose = 650 mg, = 2 tab(s), Oral, q4h, PRN, Pain, scale 1-3, 12/05/21 20:26:00 EDT acetaminophen, Start: 12/05/21 20:26:00 EDT, Dose = 650 mg, = 2 tab(s), Oral, q6h, PRN, Fever, 12/05/21 20:26:00 EDT acetaminophen-hydrocodone, Start: 12/05/21 20:26:00 EDT, Dose = 1 tab(s), Tab, Oral, q4h, PRN, Pain, scale 4-6, 12/05/21 20:26:00 EDT albuterol-ipratropium, Start: 12/05/21 20:26:00 EDT, Dose = 3 mL, Soln, Inhalation, q2hRT, PRN, Shortness of breath or wheezing, 12/05/21 20:26:00 EDT glucose, Start: 12/05/21 20:: EDT, Dose = 12.5 gram(s), = 25 mL, IV Push, AsDirected, PRN, Low blood sugar, 12/05/21 20:26:00 EDT hydrochlorothiazide-lisinopril, Dose = 1 tab(s), Oral, qDay, resume on saturday 12/09, X 90 day(s), # 90 tab(s), 3 Refill(s), Pharmacy: [facility]/pharmacy #[id number], 170.2, cm, 07/03/21 13:43:00 EST, Height, kg, 07/03/21 13:48:00 EST, Dosing Weight insulin lispro (HumaLOG), Start: 12/05/21 22:00:00 EDT, 0-10 unit(s), Subcutaneous, achs, 0, 12/05/21 20::00 EDT melatonin, Start: 12/05/21 20:26:00 EDT, Dose = 3 mg, = 1 tab(s), Oral, qHS, PRN, Sleep, 12/05/21 20:26:00 EDT ondansetron, Start: 12/05/21 20:26:00 EDT, Dose = 4 mg, = 2 mL, IV Push, q4h, PRN, Nausea/Vomiting, 12/05/21 20:26:00 EDT ondansetron, Dose : 4 mg = 1 tab(s), Oral, q8h, PRN Nausea/Vomiting, # 15 tab(s), 0 Refill(s), 12/07/21 15:03:00 EDT, Pharmacy: [facility]/pharmacy #[id number], 170, cm, 12/05/21 20:14:00 EDT, Height polyethylene glycol 3350, Start: 12/05/21 20:26:00 EDT, Dose = 17 gram(s), = 15 mL, Oral, BID, PRN, Constipation, 12/05/21 20:26:00 EDT Sodium Chloride 0.9% intravenous solution 1,000 mL, Start: 12/05/21 20:26:00 EDT, Rate: 80 mL/hr, 12/05/21 20:26:00 EDT Activity as tolerated [employer] Diet Blood Glucose Monitoring POC Discharge Activity Discharge Diet Orthostatic Vital Signs Sequential Compression Device Application Problem List/Past Medical History Ongoing Back pain, chronic Chronic low back pain Clotting disorder CONGESTIVE HEART FAILURE, UNSPECIFIED Depression with anxiety Diabetes mellitus type 2 Diabetic neuropathy Eczema Fibromyalgia GERD - Gastro-esophageal reflux disease Hearing loss on left High blood pressure History of cocaine use History of DVT of lower extremity Mixed hyperlipidemia Neuropathy Osteoarthritis of right knee Pain in toe of left foot Persistent insomnia Sciatica Soft tissue mass Tobacco dependence Urinary urgency Historical Diarrhea DVT (deep venous thrombosis) Inflammation of nasal mucosa PE (pulmonary embolism) Skin lesion Procedure/Surgical History 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 Carpal tunnel release: 12/2007 Cyst of face: 2007 Abdominal hysterectomy: 1994 Cholecystectomy: 1979 Colonoscopy Removal of pilonidal cyst Medications Home Medications (17) Active albuterol MDI (90 mcg/inh) CFC free inhalation aerosol 2 puff(s), PRN, Inhalation, q4h aspirin 81 mg oral delayed release tablet 81 mg = 1 tab(s), Oral, BID Blood Glucose Test Machine See Instructions Blood Glucose Test Strips See Instructions buPROPion 300 mg/24 hours (XL) oral tablet, extended release 300 mg = 1 tab(s), Oral, qDay Eliquis 5 mg oral tablet 5 mg = 1 tab(s), Oral, BID Farxiga 5 mg oral tablet 5 mg = 1 tab(s), Oral, qDay FLUoxetine 40 mg oral capsule 40 mg = 1 cap(s), Oral, qDay gabapentin 600 mg oral tablet 1,200 mg = 2 tab(s), Oral, TID hydrochlorothiazide-lisinopril 12.5 mg-20 mg oral tablet 1 tab(s), Oral, qDay hydrOXYzine hydrochloride 50 mg oral tablet 50 mg = 1 tab(s), PRN, Oral, QID metFORMIN 500 mg oral tablet EXTENDED RELEASE 2,000 mg = 4 tab(s), Oral, qDay NIFEdipine (Eqv-Procardia XL) 60 mg oral tablet, extended release See Instructions omeprazole 20 mg oral delayed release capsule 20 mg = 1 cap(s), Oral, qDay Pen needles 5 mm See Instructions pentoxifylline 400 mg oral tablet, extended release 400 mg = 1 tab(s), Oral, TID Zofran 4 mg oral tablet 4 mg = 1 tab(s), PRN, Oral, q8h Allergies NSAIDs (Nausea) Ozempic (Nausea, Abdominal pain) Trulicity Pen (Abdominal pain, Headache, Nausea) simvastatin (Nausea) Social History Smoking Status - 06/19/2017 Current every day smoker Alcohol - Denies Alcohol Use, 11/20/2016 Use: Current. Frequency: 1-2 times per month., 11/25/2018 Employment/School Status: Retired., 05/29/2019 Exercise Home/Environment Domestic Concerns: None. Living situation: Home/Independent. Lives In: Apartment, 1st floor bathroom., 05/29/2019 Nutrition/Health Type of diet: Diabetic. Eating Difficulties None., 05/29/2019 Substance Abuse - Denies Substance Abuse, 11/20/2016 Use: Never., 05/29/2019 Tobacco Nicotine Use: 1 pack of cigarettes daily., 02/28/2021 Family History Alzheimer disease: Mother. Bleeding disorder: Sister. Diabetes mellitus: Father and Sister. HTN - Hypertension: Father and Sister. Stroke: Mother. Immunizations SARS-CoV-2 (COVID-19) mRNA-1273 vaccine: 0.5 unknown unit (10/19/20) SARS-CoV-2 (COVID-19) mRNA-1273 vaccine: 0 unknown unit (09/21/20) tetanus/diphth/pertuss (Tdap) adult/adol: 0 unknown unit (05/06/08) tetanus/diphth/pertuss (Tdap) adult/adol: 0 unknown unit (04/04/08) Code Status No qualifying data available. Digitally Signed by TREVIN CUEVA on 12/06/2021 04:14 PM [facility] 12-06-2021 Note Discharge Instructions Thank you for allowing [facility] to assist you with your healthcare needs. The following is important discharge information regarding your hospital visit. Your Care Team [facility] Your Diagnosis Depression with anxiety Diabetes mellitus type 2 History of DVT of lower extremity Nausea Sciatica Weakness or fatigue What to do next Scheduled Follow-Up Appointments Appointment Type When With Where Contact InformationPC Hospital Follow-Up 12/19/2021 11:30 AM EDT ANNABEL STEINBERG DO [facility] [address] [address] [place] [address] DB Diabetic Individual Visit 01/03/2022 02:00 PM EDT [facility] Diet Visits DB Diabetic Individual Visit 02/07/2022 02:00 PM EDT [facility] Diet Visits Follow Up Appointments Follow Up with ANNABEL STEINBERG DO When 12/19/2021 11:30 AM EDT Why: This appointment will serve as your post-hospital follow-up appointment. Where: [address] [place] [phone] The Following Activity and Diet Have Been Ordered for You Discharge Activity - Ordered -- NO activity restrictions, 12/06/21 15:04:00 EDT Discharge Diet - Ordered -- No changes were made to your diet during your hospital stay. Please resume your pre hospitalization diet on discharge., 12/06/21 15:04:00 EDT Allergies NSAIDs (Nausea) Ozempic (Nausea, Abdominal pain) Trulicity Pen (Abdominal pain, Headache, Nausea) simvastatin (Nausea) Medications Please ask your primary doctor or pharmacist before taking any other medication not listed, including over the counter drugs, herbal medications, vitamins and or supplements as they may interact with your home medications. What How Much When Why Instructions Last Dose New ondansetron (Zofran 4 mg oral tablet) 1 tab(s) by mouth Every 8 hours as needed for Nausea/Vomiting Pickup at [facility]/pharmacy #[id number] 12/06/21 @11AM Changed hydrochlorothiazide-lisinopril (hydrochlorothiazide-lisinopril 12.5 mg-20 mg oral tablet) 1 tab(s) by mouth Once a day Duration: 90 Days resume on saturday 12/09 NOT GIVEN Unchanged albuterol (albuterol MDI (90 mcg/ inh) CFC free inhalation aerosol) 2 puff(s) by inhalation Every 4 hours as needed for as needed for wheezing Viral upper respiratory infection NOT GIVEN Unchanged apixaban (Eliquis 5 mg oral tablet) 1 tab(s) by mouth Two (2) times a day History of DVT of lower extremity 12/06/21 @830AM Unchanged aspirin (aspirin 81 mg oral delayed release tablet) 1 tab(s) by mouth Two (2) times a day 12/06/21 @830AM Unchanged buPROPion (buPROPion 300 mg/ 24 hours (XL) oral tablet, extended release) 1 tab(s) by mouth Once a day Depression with anxiety 12/06/21 @930AM Unchanged dapagliflozin (Farxiga 5 mg oral tablet) 1 tab(s) by mouth Once a day NOT GIVEN Unchanged DME (Blood Glucose Test Machine) See instructions Use as directed BID to test blood sugar; Brand type per insurance or patient preference-ONE TOUCH; Dx: E11.9 NOT GIVEN Unchanged DME (Blood Glucose Test Strips) See instructions Dispense glucose test strips, #200, UAD BID to test blood sugar; Dx: E11.9 NOT GIVEN Unchanged DME (Pen needles 5 mm) See instructions Diabetes mellitus type 2 Dispense UltraFine pen needles 5mm, #100, use as directed daily to inject insulin. Diagnosis: E 11.9 NOT GIVEN Unchanged FLUoxetine (FLUoxetine 40 mg oral capsule) 1 cap by mouth Once a day Depression with anxiety 12/06/21 @830AM Unchanged gabapentin (gabapentin 600 mg oral tablet) 2 tab(s) by mouth Three (3) times a day Sciatica Duration: 30 Days 12/06/21 @230PM Unchanged hydrOXYzine (hydrOXYzine hydrochloride 50 mg oral tablet) 1 tab(s) by mouth Four (4) times a day as needed for anxiety NOT GIVEN Unchanged metFORMIN (metFORMIN 500 mg oral tablet EXTENDED RELEASE) 4 tab(s) by mouth Once a day Diabetes mellitus type 2 12/06/21 @930AM Unchanged NIFEdipine (NIFEdipine (Eqv-Procardia XL) 60 mg oral tablet, extended release) See instructions TAKE 1 TABLET BY MOUTH EVERY DAY NOT GIVEN Unchanged omeprazole (omeprazole 20 mg oral delayed release capsule) 1 cap by mouth Once a day 12/06/21 @5AM Unchanged pentoxifylline (pentoxifylline 400 mg oral tablet, extended release) 1 tab(s) by mouth Three (3) times a day 12/06/21 @230PM Pharmacy Information [facility]/pharmacy #[id number]: [address], [place] [phone] What How Much When Why Comments Stop Taking meclizine (meclizine 25 mg oral tablet) 1 tab(s) by mouth Three (3) times a day Nausea in adult Duration: 10 Days Please take this list to your next doctor s visit. Bring all medications you take, including over the counter medications, herbals and other supplements with you to your doctor s visit. Patients and families are reminded to discard old lists and to update any records with all medication providers or retail pharmacies. Education Materials Dehydration, Adult Dehydration is when there is not enough fluid or water in your body. This happens when you lose more fluids than you take in. Dehydration can range from mild to very bad. It should be treated right away to keep it from getting very bad. Symptoms of mild dehydration may include: Thirst. Dry lips. Slightly dry mouth. Dry, warm skin. Dizziness. Symptoms of moderate dehydration may include: Very dry mouth. Muscle cramps. Dark pee (urine). Pee may be the color of tea. Your body making less pee. Your eyes making fewer tears. Heartbeat that is uneven or faster than normal (palpitations). Headache. Light-headedness, especially when you stand up from sitting. Fainting (syncope). Symptoms of very bad dehydration may include: Changes in skin, such as: ? Cold and clammy skin. ? Blotchy (mottled) or pale skin. ? Skin that does not quickly return to normal after being lightly pinched and let go (poor skin turgor). Changes in body fluids, such as: ? Feeling very thirsty. ? Your eyes making fewer tears. ? Not sweating when body temperature is high, such as in hot weather. ? Your body making very little pee. Changes in vital signs, such as: ? Weak pulse. ? Pulse that is more than 100 beats a minute when you are sitting still. ? Fast breathing. ? Low blood pressure. Other changes, such as: ? Sunken eyes. ? Cold hands and feet. ? Confusion. ? Lack of energy (lethargy). ? Trouble waking up from sleep. ? Short-term weight loss. ? Unconsciousness. Follow these instructions at home: If told by your doctor, drink an ORS: ? Make an ORS by using instructions on the package. ? Start by drinking small amounts, about cup (120 mL) every 5 10 minutes. ? Slowly drink more until you have had the amount that your doctor said to have. Drink enough clear fluid to keep your pee clear or pale yellow. If you were told to drink an ORS, finish the ORS first, then start slowly drinking clear fluids. Drink fluids such as: ? Water. Do not drink only water by itself. Doing that can make the salt (sodium) level in your body get too low (hyponatremia). ? Ice chips. ? Fruit juice that you have added water to (diluted). ? Low-calorie sports drinks. Avoid: ? Alcohol. ? Drinks that have a lot of sugar. These include high-calorie sports drinks, fruit juice that does not have water added, and soda. ? Caffeine. ? Foods that are greasy or have a lot of fat or sugar. Take iiga-krd-szxgwal and prescription medicines only as told by your doctor. Do not take salt tablets. Doing that can make the salt level in your body get too high (hypernatremia). Eat foods that have minerals (electrolytes). Examples include bananas, oranges, potatoes, tomatoes, and spinach. Keep all follow-up visits as told by your doctor. This is important. Contact a doctor if: You have belly (abdominal) pain that: ? Gets worse. ? Stays in one area (localizes). You have a rash. You have a stiff neck. You get angry or annoyed more easily than normal (irritability). You are more sleepy than normal. You have a harder time waking up than normal. You feel: ? Weak. ? Dizzy. ? Very thirsty. You have peed (urinated) only a small amount of very dark pee during 6 8 hours. Get help right away if: You have symptoms of very bad dehydration. You cannot drink fluids without throwing up (vomiting). Your symptoms get worse with treatment. You have a fever. You have a very bad headache. You are throwing up or having watery poop (diarrhea) and it: ? Gets worse. ? Does not go away. You have blood or something green (bile) in your throw-up. You have blood in your poop (stool). This may cause poop to look black and tarry. You have not peed in 6 8 hours. You pass out (faint). Your heart rate when you are sitting still is more than 100 beats a minute. You have trouble breathing. This information is not intended to replace advice given to you by your health care provider. Make sure you discuss any questions you have with your health care provider. Document Released: 02/16/2010 Document Revised: 04/04/2018 Document Reviewed: 06/15/2016 Elsevier Patient Education 2020 esolidar. Additional Information VACCINATE! IT SAVES LIVES! Members of the community who have not yet received the COVID-19 vaccine and would like to receive it can visit one of [facility] vaccine clinics. There are many vaccine clinic locations within the [facility]. For locations and available times, please visit [email or web address].[email or web address] It is important to note that some COVID mobile vaccine clinics are held outdoors and may be canceled in rainy or stormy conditions. To learn more about pediatric vaccinations (ages 5-11), we invite you to visit the [facility] webpage. [email or web address] To learn more about the COVID-19 vaccine, we invite you to visit the [employer] website for a list of frequently asked questions. [email or web address] [facility] Patient Portal Access Instructions: Stay connected with your healthcare team and access your personal medical information anytime with the [facility] Patient Portal.If you would like a full copy of your medical records, please contact the [facility] Medical Records Department, Saturday through Saturday between 8a.m. and 4:30p.m. Please follow the directions below to access the portal: 1.Access the email account you provided upon registration to the hospital.2.Look for an invitation email from [facility].3.Open the email and access the invitation link: Accept Invitation to [facility]4.Fill in the required fuentes to create your account. Sign into www.[employer] with your username and password that you created in the above steps to stay up to date. You can then view a summary of results, a summary of your visits, and the ability to download your summaries to your computer or send the information securely to a physician. Remember that your healthcare information is confidential, so carefully consider who you will allow to register on the [facility] Patient Portal for access to your information. You can also access the [facility] Patient Portal on the [employer] radha. Simply click on Health Records under Health Data and then click on the [employer] logo. HOW TO SAFELY DISPOSE OF PRESCRIPTION MEDICATIONS Please use one of the following methods to safely dispose of your unused medications. 1.Use a drug disposal kit: the drug disposal pouch allows you to safely discard your old and unused drugs. Ask your nurse to give you one when you are discharged.2.Visit a local take-back location: Many local pharmacies and police departments have programs that collect old and unwanted prescription drugs. Call your local pharmacy or go to http://[employer].The Meish[employer]ie website/4M7Dz8e to find one close to you.3.Make use of household items: Use cat litter or old coffee grounds to dispose medications if other options are not available. Mix your drugs with these household products, seal them in an airtight container and throw it into the garbage. Call [facility]: [phone] to be sure your drugs can be disposed of in this way. Some medicines may require a different approach.4.Never flush your medications down the toilet. IF YOU HAVE BEEN PRESCRIBED AN OPIOID FOR PAIN If you have been prescribed an opioid (such as hydrocodone, oxycodone or morphine), it is critical to understand the possible side effects and risks of opioid pain medications. Even when taken as directed, opioids can have several side effects including: Tolerance, meaning you might need to take more of a medication for the same pain relief. Nausea, vomiting and/or constipation. Sleepiness, dizziness, dry mouth, confusion, depression or itching. Physical dependence, meaning you have withdrawal symptoms when a medication is stopped, can develop within a few days. KNOW YOUR RESPONSIBILITIES It is important to know exactly how much and how often to take the opioid pain medications you are prescribed. Never take opioids in higher amounts or more often than prescribed. Do not combine opioids with alcohol or other drugs that cause drowsiness, such as benzodiazepines, also known as benzos, including diazepam and alprazolam, muscle relaxants or sleep aids. Never sell or share prescription opioids. This is illegal. Store opioids in a secure place and out of reach of others (including children, family, friends and visitors). The last page of this document has been signed and retained as a CHART COPY. Signatures Patient Education Materials Dehydration, Adult, Cwze-vw-Gomz Medication Leaflets My discharge plan and instructions have been reviewed and explained to me and I,HONORIO TOVAR understand my current condition and have read and understand these discharge instructions. I have received a written copy of the plan/instructions. If I have questions, I am aware that I should contact my doctor. Patient/Supervisor Prop Making Signature: Date/Time: Relationship to Patient: ____ Witness Name/Signature: Date/Time: [facility] 1. Nausea 2. Diarrhea 3. FELIX (acute kidney injury) 4. Depression with anxiety 5. Diabetes mellitus type 2 6. CONGESTIVE HEART FAILURE, UNSPECIFIED 7. Fibromyalgia 8. GERD - Gastro-esophageal reflux disease 9. High blood pressure 10. Mixed hyperlipidemia 11. PVD (peripheral vascular disease) 12. IBS (irritable bowel syndrome) Patient was treated here with IV fluids, Zofran, magnesium bolus. Feeling a bit better at this time but has not had much to eat for breakfast. Her acute kidney injury is improved down to 1.23. Her blood sugars are well controlled currently. Ozempic has been discontinued and added to her allergy list. Orthostatic vital signs were checked for her complaint of dizziness and are found to be negative, patient reports her dizziness is improved from previous. Notified the patient of the findings on her CT including fatty liver as well as the breast abnormality, patient states she is not up-to-date on her mammogram, states she is going to follow-up with her primary care provider to get an order to get one done. Her home medication of HCTZ lisinopril is currently on hold. Blood pressure stable. Will reevaluate how she is feeling later in the day, possible discharge. Discussed with Dr. Olson Orders: acetaminophen, Start: 12/05/21::00 EDT, Dose = 650 mg, = 2 tab(s), Oral, q4h, PRN, Pain, scale 1-3, 12/05/21::00 EDT acetaminophen, Start: 12/05/21:: EDT, Dose = 650 mg, = 2 tab(s), Oral, q6h, PRN, Fever, 12/05/21::00 EDT acetaminophen-hydrocodone, Start: 12/05/21: EDT, Dose = 1 tab(s), Tab, Oral, q4h, PRN, Pain, scale 4-6, 12/05/21: EDT albuterol-ipratropium, Start: 12/05/21: EDT, Dose = 3 mL, Soln, Inhalation, q2hRT, PRN, Shortness of breath or wheezing, 12/05/21:00 EDT glucose, Start: 12/05/21: EDT, Dose = 12.5 gram(s), = 25 mL, IV Push, AsDirected, PRN, Low blood sugar, 12/05/21::00 EDT hydrochlorothiazide-lisinopril, Dose = 1 tab(s), Oral, qDay, resume on saturday 12/09, X 90 day(s), # 90 tab(s), 3 Refill(s), Pharmacy: [facility]/pharmacy #[id number], 170.2, cm, 07/03/21 13:43:00 EST, Height, kg, 07/03/21 13:48:00 EST, Dosing Weight insulin lispro (HumaLOG), Start: 12/05/21 22:00:00 EDT, 0-10 unit(s), Subcutaneous, achs, 0, 12/05/21::00 EDT melatonin, Start: 12/05/21:: EDT, Dose = 3 mg, = 1 tab(s), Oral, qHS, PRN, Sleep, 12/05/21 20::00 EDT ondansetron, Start: 08/02/22 20:26:00 EDT, Dose = 4 mg, = 2 mL, IV Push, q4h, PRN, Nausea/Vomiting, 12/05/21 20:26:00 EDT ondansetron, Dose : 4 mg = 1 tab(s), Oral, q8h, PRN Nausea/Vomiting, # 15 tab(s), 0 Refill(s), 12/07/21 15:03:00 EDT, Pharmacy: [facility]/pharmacy #[id number], 170, cm, 12/05/21 20:14:00 EDT, Height polyethylene glycol 3350, Start: 12/05/21 20:26:00 EDT, Dose = 17 gram(s), = 15 mL, Oral, BID, PRN, Constipation, 12/05/21 20:26:00 EDT Sodium Chloride 0.9% intravenous solution 1,000 mL, Start: 12/05/21 20:26:00 EDT, Rate: 80 mL/hr, 12/05/21 20:26:00 EDT Activity as tolerated [employer] Diet Blood Glucose Monitoring POC Discharge Activity Discharge Diet Orthostatic Vital Signs Sequential Compression Device Application Future Appointments Appointment Date:12/19/2021 11:30:00 AM Scheduled Provider:ANNABEL STEINBERG DO Location:[facility] Appointment Type:[facility] Hospital Follow-Up Appointment Date:01/03/2022 02:00:00 PM Scheduled Provider: Location:[facility] Appointment Type: Diabetic Individual Visit Appointment Date:02/07/2022 02:00:00 PM Scheduled Provider: Location:[facility] Appointment Type:DB Diabetic Individual Visit Future Scheduled Tests Laboratory* Stool Culture 01/03/21 * Clostridium difficile PCR 01/03/21 [facility] 08-02-2022 Note ORIGINAL EXAMINATION: CT OF THE ABDOMEN AND PELVIS WITHOUT CONTRAST 12/05/2021 6:36 pm TECHNIQUE: CT of the abdomen and pelvis was performed without the administration of intravenous contrast. Multiplanar reformatted images are provided for review. Automated exposure control, iterative reconstruction, and/or weight based adjustment of the mA/kV was utilized to reduce the radiation dose to as low as reasonably achievable. COMPARISON: Limited images of MRI of the pelvis on October 02, 2016 HISTORY: ORDERING SYSTEM PROVIDED HISTORY: Reason for Exam: abdominal pain FINDINGS: Lower Chest: Right retroareolar soft tissue irregularity partially imaged. Coronary artery calcifications. Lung bases are clear. Organs: Hepatic steatosis. Cholecystectomy. The spleen, pancreas and adrenal glands are unremarkable. No hydronephrosis or obstructing nephrolithiasis. A few 0.2 cm obstructing nephrolithiases in the mid kidneys bilaterally. GI/Bowel: No bowel obstruction, pneumoperitoneum, or ascites. Appendix is not visualized. Pelvis: Urinary bladder is unremarkable. Uterus not visualized. Peritoneum/Retroperitoneum: Nonaneurysmal abdominal aorta with atherosclerotic plaque. No enlarged intra-abdominal lymph nodes. Bones/Soft Tissues: Degenerative changes of the spine. IMPRESSION: No acute intra-abdominal abnormality. A few scattered nonobstructing nephrolithiasis bilaterally. Hepatic steatosis. Right retroareolar soft tissue irregularity partially imaged; correlate with mammography results. Interpreted by: Edil Fernández Preliminary Report By: Edil Fernández Electronically signed By Edil Fernández Dictated Date: 12/05/2021 6:40:57 PM Prelim Date: 12/05/2021 6:47:10 PM Sign Date: 12/05/2021 6:47:10 PM Ordering Provider: [facility]08-02-2022 Note ORIGINAL EXAMINATION: CT OF THE ABDOMEN AND PELVIS WITHOUT CONTRAST 12/05/2021 6:36 pm TECHNIQUE: CT of the abdomen and pelvis was performed without the administration of intravenous contrast. Multiplanar reformatted images are provided for review. Automated exposure control, iterative reconstruction, and/or weight based adjustment of the mA/kV was utilized to reduce the radiation dose to as low as reasonably achievable. COMPARISON: Limited images of MRI of the pelvis on October 02, 2016 HISTORY: ORDERING SYSTEM PROVIDED HISTORY: Reason for Exam: abdominal pain FINDINGS: Lower Chest: Right retroareolar soft tissue irregularity partially imaged. Coronary artery calcifications. Lung bases are clear. Organs: Hepatic steatosis. Cholecystectomy. The spleen, pancreas and adrenal glands are unremarkable. No hydronephrosis or obstructing nephrolithiasis. A few 0.2 cm obstructing nephrolithiases in the mid kidneys bilaterally. GI/Bowel: No bowel obstruction, pneumoperitoneum, or ascites. Appendix is not visualized. Pelvis: Urinary bladder is unremarkable. Uterus not visualized. Peritoneum/Retroperitoneum: Nonaneurysmal abdominal aorta with atherosclerotic plaque. No enlarged intra-abdominal lymph nodes. Bones/Soft Tissues: Degenerative changes of the spine. IMPRESSION: No acute intra-abdominal abnormality. A few scattered nonobstructing nephrolithiasis bilaterally. Hepatic steatosis. Right retroareolar soft tissue irregularity partially imaged; correlate with mammography results. Interpreted by: Edil Fernández Preliminary Report By: Edil Fernández Electronically signed By Edil Fernández Dictated Date: 12/05/2021 6:40:57 PM Prelim Date: 12/05/2021 6:47:10 PM Sign Date: 12/05/2021 6:47:10 PM [facility] Appointment Date:03/27/2021 04:30:00 PM Scheduled Provider:ANNABEL STEINBERG DO Location:[facility] Appointment Type:PC OV Future Scheduled Tests Laboratory* Clostridium difficile PCR 01/03/21 * Stool Culture 01/03/21 [facility] Evaluation + Plan note Future Appointments Appointment Date:01/03/2022 02:00:00 PM Scheduled Provider: Location:[facility] Appointment Type:DB Diabetic Individual Visit Appointment Date:02/07/2022 02:00:00 PM Scheduled Provider: Location:[facility] Appointment Type:DB Diabetic Individual Visit Appointment Date:03/20/2022 01:30:00 PM Scheduled Provider:ANNABEL STEINBERG DO Location:[facility] Appointment Type:PC OV Future Scheduled Tests Laboratory* Stool Culture 01/03/21 * Clostridium difficile PCR 01/03/21 [facility] Evaluation + Plan note Future Appointments Appointment Date:06/21/2022 03:00:00 PM Scheduled Provider:ANNABEL STEINBERG DO Location:[facility] Appointment Type:PC OV [facility] Evaluation + Plan note Future Appointments Appointment Date:07/26/2022 09:00:00 AM Scheduled Provider: Location:[facility] Appointment Type:DB Diabetic Individual Visit (AOH) Appointment Date:07/26/2022 11:00:00 AM Scheduled Provider:ANNABEL STEINBERG DO Location:[facility] Appointment Type:PC OV [facility] Evaluation + Plan note Future Appointments Appointment Date:12/31/2022 10:00:00 AM Scheduled Provider: Location:[facility] Appointment Type:DB Diabetic Individual Visit (AOH) Appointment Date:01/31/2023 11:00:00 AM Scheduled Provider:ANNABEL STEINBERG DO Location:[facility] [place] Appointment Type:PC OV [facility] Evaluation note* Diagnosis Sudden idiopathic hearing loss, left ear documented in this encounter [facility] Work Phone: Hospital course Narrative No data available for this section [facility] Hospital Discharge instructions No data available for this section [facility] Progress note No data available for this section [facility] Summary Purpose Family History No Family History Records Found No data available for this section No Family History Records Found Advance Directives No Advanced Directives Records FoundDocuments on File Type Date Recorded Patient Supervisor Prop Making Expl anation ACP-Advance Directive ACP-Power of Electric Switch Tester Latest Code Status on File Code Status Date Activated Date Inactivated Comments Full Code 06/05/2018 2:24 PM 06/05/2018 7:58 PM Additional Source Comments INFORMATION SOURCE (unrecogn ized section and content) DATE CREATED AUTHOR AUTHOR'S ORGANIZ ATION 03/12/2023 [facility] ([place]) Care Team (unrecognized sect ion and content) Care Team Personnel Name: ANNABEL STEINBERG DO Position: P4 Physician - Primary Care Med Service: Active Provider Member Role: Primary Care Physician Address: Address: [address] [place] [address] Care Team Related Persons Name: LISA SANTO Care Team Personnel Name: ANNABEL STEINBERG DO Position: P4 Physician - Primary Care Member Role: Primary Care Physician Address: Address: [address] [place] [address] Care Team Related Persons Name: LISA SANTO Care Team Personnel Name: ANNABEL STEINBERG DO Position: P4 Physician - Primary Care Member Role: Primary Care Physician Address: Address: [address] [place] [address] Name: NATHALIA BROOKS DO Position: ED Physician Member Role: ED Physician Address: Address: [facility] [address] Name: Alma Delia Mcdonald RN Position: AO RN Member Role: ED RN Care Team Related Persons Name: LISA SANTO Care Team Personnel Name: ANNABEL STEINBERG DO Position: P4 Physician - Primary Care Member Role: Primary Care Physician Address: Address: [address] [place] [address] Care Team Related Persons Name: LISA SANTO Care Team Personnel Name: ANNABEL STEINBERG DO Position: P4 Physician - Primary Care Member Role: Primary Care Physician Address: Address: [address] [place] [address] Name: Lacy Christian RN Position: ED RN Member Role: ED RN Name: MD CODY, CARMEN REYNAGA Position: ED Physician Member Role: ED Physician Address: Address: [address] [place] [address] Care Team Related Persons Name: LISA SANTO Patient Care team informatio n (unrecognized section and content) Care Team Personnel Name: ANNABEL STEINBERG DO Position: P4 Physician - Primary Care Member Role: Primary Care Physician Address: Address: [address] [place] [address] Care Team Related Persons Name: HANSALISA Care Team Personnel Name: ANNABEL STEINBERG DO Position: P4 Physician - Primary Care Member Role: Primary Care Physician Address: Address: [address] [place] [address] Care Team Related Persons Name: MICHAEL RAINEY FOR RECORDS PERTAINING TO PATIENTS WHO ARE OR HAVE BEEN ENROLLED IN A CHEMICAL DEPENDENCY/SUBSTANCEABUSE PROGRAM, SOME INFORMATION MAY BE OMITTED. This clinical summary was aggregated from multiple sources. Caution should be exercised in using it in the provision of clinical care. This summary normalizes information from multiple sources, and as a consequence, information in this document may materially change the coding, format and clinical context of patient data. In addition, data may be omitted in some cases. CLINICAL DECISIONS SHOULD BE BASED ON THE PRIMARY CLINICAL RECORDS. [employer] [facility]. provides no warranty or guarantee of the accuracy or completeness of information in this document.
== END | disposition home or self-care (01) ==
LOC: CVS 12:24
PROVIDERS: PCP Preventive Medicine Occupational Medicine; Referring Provider Surgery Vascular Surgery; Visit Provider Surgery Vascular Surgery
DX: I70.213 Atherosclerosis of native arteries of extremities with intermittent claudication, bilateral legs (principal); I77.1 Stricture of artery; F17.210 Nicotine dependence, cigarettes, uncomplicated
CPT/HCPCS: 93922; 93925